=== PATIENT | female | born 1950 | race Caucasian/White ===

== ENCOUNTER 2020-05-17 07:53 | Outpatient (REF) | payer MEDICARE, SELFPAY | END 2020-05-17 07:54 | disposition home or self-care (01) | LOC: HO.LAB 07:53 | PROVIDERS: Visit Provider Internal Medicine | DX: Z20.822 Contact with and (suspected) exposure to COVID-19 (principal) | CPT/HCPCS: 36415; C9803; U0003; U0005 ==

== ENCOUNTER 2020-07-05 12:08 | Emergency (ER) | payer MEDICARE, SELFPAY ==
[2020-07-05] VITALS (7 sets, daily range): BP systolic 122–179; BP diastolic 68–87; PULSE 59–91; RESP 20; TEMP 36.6–36.9; O2SAT 97–99; BMI 23.1
--- NOTE | 2020-07-05 12:09 | ED.SYNCOPE ---
HPI - Syncope General Chief Complaint: Syncope Stated Complaint: SYNCOPAL EPISODE Time Seen by Provider: 07/05/20 12:09 Source: patient and EMS Mode of arrival: EMS Limitations: no limitations History of Present Illness HPI narrative: 70 yo female with anxiety did not eat dinner or breakfast this AM, was walking a long route this morning then felt the urge to have a bowel movement, felt lightheaded and dizzy hit her nose on the railing was able to lower herself and then had brief syncopal event, currently feels lightheaded has not had CP/SOB, feels she still has to have BM while here complaint: loss of consciousness, felt faint and collapsed Onset (ago): minute(s) -: second(s) Prodromal symptoms: vision changes and lightheaded Witnessed: Yes - by Bystander Context: during exertion (walking and felt she was going to have a BM) Injuries sustained associated with event: face (bruising and abrasion on nose) Current symptoms: lightheaded Treatments prior to arrival: none Related Data Allergies Allergy/AdvReac Type Severity Reaction Status Date / Time morphine [MORPHINE] Allergy Intermediate VOMITING, Verified 07/05/20 12:23 stomach upset sertraline Allergy Unknown Unknown Verified 07/05/20 12:23 Review of Systems Review of Systems: Constitutional : No Weight loss, No Fever, No Chills, No Fatigue, No Malaise ENT/Mouth : No sore throat, No Rhinorrhea Eyes: No Eye Pain, No Swelling, No Redness Cardiovascular : No Chest Pain, No SOB, No Dyspnea on Exertion, No Orthopnea, No Edema, No Palpitations Respiratory : No Cough, No Sputum, No Wheezing Gastrointestinal : No Nausea, No Vomiting, No Diarrhea, No Constipation, No abdominal Pain, No Hematochezia, No Melena Genitourinary : No Dysuria, No Urinary Frequency, No Hematuria, Musculoskeletal : No joint pain, No Myalgias, No Joint Swelling Skin : No Skin Lesions, No rash Neuro : pos Weakness, No Numbness, No Dizziness, No Headache, pos syncope Psych : No Anxiety/Panic, No Depression Heme/Lymph: No Bruising, No Bleeding,No Lymphadenopathy Endocrine : No Polyuria, No Polydipsia All other systems reviewed and are negative [facility] Past Medical History Attestation statement: The following information was validated with the patient. Medical History Anxiety Social History Social History (Updated 07/05/20 @ 12:25 by Montserrat Fu DO) Alcohol intake: never Smoking Status: Never smoker Use of substances other than those prescribed or required for medical reasons: Yes Substance Use Type: Marijuana Advance Directives: No Advance Directives Information Provided: Yes Physical Exam Vital Signs: Vital Signs: Last Vital Signs Temp 97.8 F 07/05/20 14:44 Pulse 66 07/05/20 14:44 Resp 20 07/05/20 14:44 BP 122/75 07/05/20 14:44 Pulse Ox 98 07/05/20 14:44 Body Mass Index 23.1 Appearance: Alert. Oriented X3. No acute distress. Eyes: Pupils equal, round and reactive to light. ENT: Pharynx normal. bruising and very superficial abrasion to bridge of nose, no deformity Neck: Normal inspection. Neck supple. CVS: Normal heart rate and rhythm. Pulses normal. Respiratory: No respiratory distress. Breath sounds normal. Abdomen: Soft and non-tender. Skin: Skin warm and dry. Normal skin color. Normal skin turgor. Extremities: No lower extremity edema. No calf ttp Neuro: Oriented X 3. No motor deficit. No sensory deficit. Course Course Course Narrative: CARE team setting patient up with [facility] feels better after 2L of IVF, no CP/SOB stable for DC at this time, ate lunch steady gait, VS stable, feels much better, stable for DC MDM - Syncope MDM Narrative Medical decision making narrative: 70 yo female with anxiety who did not eat dinner last night or breakfast today comes in with syncopal event while walking as she felt the urge to have a bowel movement, had a prodrome, no CP/SOB doubt ACS or PE, has superficial injury to nose, no headache no AC therapy, declines xrays of nose does not need head CT at this time GCS 15 no risk factors, midline of neck no ttp and no pain with ROM, will hydrate, obtain basic labs and EKG, dispo per results and findings. Lab Data Result diagrams: 07/05/20 12:28 07/05/20 12:28 Labs: Lab Results 07/05/20 07/05/20 07/05/20 Range/Units 12:28 12:28 12:28 WBC 5.3 (4.8-10.8) X10*3/uL RBC 4.32 (4.20-5.50) X10*6/uL Hgb 13.2 (12.0-16.0) g/dl Hct 37.6 (37-47) % MCV 87.0 (80-98) fL MCH 30.6 (27.0-33.0) pg MCHC 35.1 H (31.0-35.0) g/dl RDW 11.9 (11.0-16.0) % Plt Count 242 (160-400) X10*3/uL MPV 10.6 (9.4-12.3) fL Immature Gran % (Auto) 0.4 (0.0-0.4) % Neut % (Auto) 53.5 (45-73) % Lymph % (Auto) 35.3 (20-40) % [place] % (Auto) 8.1 (2-11) % Eos % (Auto) 1.9 (0-4) % Baso % (Auto) 0.8 (0-2) % Lymph # (Auto) 1.9 (1.2-4.9) X10*3/uL [place] # (Auto) 0.4 (0.1-1.2) X10*3/uL Eos # (Auto) 0.1 (0.0-0.4) X10*3/uL Baso # (Auto) 0.0 (0.0-0.2) X10*3/uL Abs Immat Gran (auto) 0.02 (0.00-0.03) X10*3/uL Absolute Neuts (auto) 2.9 (2.0-8.3) X10*3/uL Absolute Nucleated RBC 0.000 (0.0-0.012) X10*3/uL Nucleated RBC % (auto) 0.0 (0.0-0.2) /100WBC Sodium 136 (135-145) mmol/L Potassium 3.7 (3.3-5.1) mmol/L Chloride 101 (96-108) mmol/L Carbon Dioxide 22 (22-29) mmol/L Anion Gap 17 (12-20) BUN 15 (9-16) mg/dL Creatinine 0.77 (0.5-1.4) mg/dL Estim Creat Clear Calc 59.5 Estimated GFR > 60 Random Glucose 98 (60-115) mg/dL Calcium 9.1 (8.4-10.2) mg/dL Magnesium 1.8 (1.6-2.6) mg/dL Total Bilirubin 1.1 H (0.0-1.0) mg/dL Direct Bilirubin 0.4 (0.0-0.5) mg/dL AST 22 (5-31) U/L ALT 21 (0-31) U/L Alkaline Phosphatase 92 (39-117) U/L Troponin I High Sens < 3.5 (<3.5-17.0) ng/L Total Protein 6.7 (6.5-8.0) g/dL Albumin 4.4 (3.5-5.0) g/dL Lipase 13 (8-78) U/L ECG Data Attestation: I personally reviewed and interpreted this ECG as follows: ECG interpretation date: 07/05/20 ECG interpretation time: 12:52 Interpretation: Rate: 57 Rhythm: sinus bradycardia [place]: normal Normal P waves. Normal TORSTEN. Normal QRS complex. ST T wave : normal no [place] qTC: normal prior studies: no acute ischemia The study has been interpreted contemporaneously by me. . Discharge Plan Discharge Clinical Impression: Vasovagal syncope Patient Disposition: Home, Self-Care Instructions: Syncope (ED) Additional Instructions: return to ED for any worsening symptoms or concerns Referrals: [facility] [Primary Care Provider] - 2 days (if not better) Stand Alone Forms: Work/School Release
--- NOTE | 2020-07-05 12:16 | ECG_ITS ---
Test Reason : FALL Blood Pressure : / mmHG Vent. Rate : 057 BPM Atrial Rate : 057 BPM P-R Int : 178 ms QRS Dur : 084 ms QT Int : 462 ms P-R-T Axes : 074 004 055 degrees QTc Int : 449 ms Sinus bradycardia Otherwise normal ECG When compared with ECG of 20-FEB-2017 12:01, No significant change was found Referred By: Montserrat Fu Electronically Signed By:Lenin Ernst
[2020-07-05] MEDS: 0.9 % Sodium Chloride 1,000 ML 999 ML IVCONT ×2 (12:32→13:48)
--- NOTE | 2020-07-05 12:35 | PC.NURSE ---
Kitchen called for lunch tray of pasta. Pt reports increased anxiety, CARE team consult placed. Pt denies SI/ HI. Pt reports having food to eat at home but just didnt eat dinner or breakfast, only liquids. Pt offered and accepted juice, water.
[2020-07-05 12:39] LABS: MANUAL DIFF FLAG NO
[2020-07-05 12:43] LABS: Basophils Percent Auto 0.8 % (0-2); Eosinophils Absolute Auto 0.1 X10*3/uL (0.0-0.4); Eosinophils Percent Auto 1.9 % (0-4); Hematocrit 37.6 % (37-47); Hemoglobin 13.2 g/dl (12.0-16.0); Imm Gran Abs Auto 0.02 X10*3/uL (0.00-0.03); Imm Gran Pct Auto 0.4 % (0.0-0.4); Lymphocytes Absolute Auto 1.9 X10*3/uL (1.2-4.9); Lymphocytes Percent Auto 35.3 % (20-40); Mean Corpuscular HGB Conc 35.1 g/dl (31.0-35.0); Mean Corpuscular Hemoglobin 30.6 pg (27.0-33.0); Mean Platelet Volume 10.6 fL (9.4-12.3); Monocytes Absolute Auto 0.4 X10*3/uL (0.1-1.2); Monocytes Percent Auto 8.1 % (2-11); Neutrophils Absolute Auto 2.9 X10*3/uL (2.0-8.3); Neutrophils Percent Auto 53.5 % (45-73); Platelet Count 242 X10*3/uL (160-400); Red Blood Count 4.32 X10*6/uL (4.20-5.50); Red Cell Distribution Width 11.9 % (11.0-16.0); White Blood Count 5.3 X10*3/uL (4.8-10.8)
[2020-07-05 13:15] LABS: Alanine Aminotransferase 21 U/L (0-31); Albumin Level 4.4 g/dL (3.5-5.0); Alkaline Phosphatase 92 U/L (39-117); Anion Gap 17 (12-20); Aspartate Amino Transferase 22 U/L (5-31); Bilirubin Direct 0.4 mg/dL (0.0-0.5); Bilirubin Total 1.1 mg/dL (0.0-1.0); Blood Urea Nitrogen 15 mg/dL (9-16); Calcium 9.1 mg/dL (8.4-10.2); Carbon Dioxide 22 mmol/L (22-29); Chloride 101 mmol/L (96-108); Creatinine Clr Calc Pharmacy 59.5; Estimated Glomerular Filt Rate > 60; Glucose Random 98 mg/dL (60-115); Lipase 13 U/L (8-78); Magnesium 1.8 mg/dL (1.6-2.6); Potassium 3.7 mmol/L (3.3-5.1); Sodium 136 mmol/L (135-145); Total Protein 6.7 g/dL (6.5-8.0)
[2020-07-05 13:18] LABS: Troponin-I High Sensitivity < 3.5 ng/L (<3.5-17.0)
--- NOTE | 2020-07-05 13:48 | PC.NURSE ---
LUNCH WAS ORDERED AND IS AT BEDSIDE, PT REFUSED LUNCH AT THIS TIME.
--- NOTE | 2020-07-05 14:03 | MHC.CARE ---
1300: Met with patient at the request of ED Dr. Fu. Pt referred for consult due to increasing anxiety. Pt describes having a great deal of stress induced anxiety which she has been experiencing for the past several months which has grown more severe approximately 2 months ago after the passing of her sister. Pt reports growing anxiety resulting from recent news of her brother being diagnosed with cancer and another sister coming out of remission. Pt's has an alcohol addiction and is suspected of Using pills as well. Pt was unable to state what kind of pills they are/were but is assuming he is using pills based on his behavior. Pt did not go into detail on what that behavior is. 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 This reliance has been causing anxiety as well. Pt has taken 6 weeks off from work to Sort things out which she states has helped in some way. Pt stated she has been looking for a counselor but has not had much luck in securing one. Pt will be referred to [facility], pt is in agreement.
--- NOTE | 2020-07-05 14:41 | PC.NURSE ---
pt ate 100% of lunch.
--- NOTE | 2020-07-05 14:49 | PC.NURSE ---
pt denies any sensation of pins/needles, no excessive swelling noted, +cms to l leg.
--- NOTE | 2020-07-05 14:51 | PC.NURSE ---
pt amb (i) gait steady approx 50ft, aware.
== END 2020-07-05 15:24 | disposition home or self-care (01) ==
PROVIDERS: Emergency Provider Emergency Medicine
DX: R55 Syncope and collapse (principal); S00.31XA Abrasion of nose, initial encounter; W22.02XA Walked into lamppost, initial encounter; Y93.01 Activity, walking, marching and hiking; Y92.414 Local residential or business street as the place of occurrence of the external cause; Y99.9 Unspecified external cause status; F41.9 Anxiety disorder, unspecified; Z72.89 Other problems related to lifestyle; Z63.72 Alcoholism and drug addiction in family; Z63.4 Disappearance and death of family member; Z56.6 Other physical and mental strain related to work
CPT/HCPCS: 36415; 80048; 80076; 83690; 83735; 84484; 85025; 93005; 96360; 99284; 99285

== ENCOUNTER 2020-09-10 23:23 | Emergency (ER) | payer MEDICARE, SELFPAY ==
[2020-09-10 23:52] VITALS: BP 135/76; PULSE 100; RESP 18; TEMP 36.7; O2SAT 98; BMI 48.0
--- NOTE | 2020-09-11 00:19 | ED.EAR ---
HPI - Ear Problem General Chief complaint: Ear Problems Stated complaint: foreign object in ear Time Seen by Provider: 09/11/20 00:19 Source: patient Mode of arrival: ambulatory History of Present Illness HPI Narrative: This is a 70-year-old female who comes in with complaints of a bug being in her left ear, she attempted to remove with a Q-tip as well as rinsing her ear but was unsuccessful and is describing significant pain every time the bug moves. Related Data Previous Rx's Medication Instructions Recorded ciprofloxacin HCl 0.25 ml OTIC (EARS) Q12H 7 Days #1 09/11/20 ea Allergies Allergy/AdvReac Type Severity Reaction Status Date / Time morphine [MORPHINE] Allergy Intermediate VOMITING, Verified 07/05/20 12:23 stomach upset sertraline Allergy Unknown Unknown Verified 07/05/20 12:23 Review of Systems Review of Systems: Pertinent positives and negatives as stated in HPI 10 point review of systems is otherwise negative. PMFSH Past Medical History Source: nursing notes reviewed Medical History Anxiety Social History Social History Alcohol intake: never Substance Use Type: Marijuana Advance Directives: No Advance Directives Information Provided: No Physical Exam Vital Signs: Vital Signs: Last Vital Signs Temp 98.0 F 09/10/20 23:52 Pulse 100 09/10/20 23:52 Resp 18 09/10/20 23:52 BP 135/76 09/10/20 23:52 Pulse Ox 98 09/10/20 23:52 Body Mass Index 48.0 VITAL SIGNS: Reviewed. GENERAL: Well developed, well nourished, in no acute distress. HEAD: Normocephalic/atraumatic EYES: PERRLA, EOMI EARS: Left ear with noted foreign object OROPHARYNX: no oral lesions noted, posterior pharynx clear LUNGS: Normal breath sounds. SpO2<98> CARDIOVASCULAR: Regular rate and rhythm without noted murmurs ABDOMEN: Soft, non-tender, non-distended with bowel sounds. SKIN: Inspection of the skin reveals no rashes NEUROLOGIC: Alert and oriented x 4. Course Course Course Narrative: 70-year-old female with history and clinical presentation consistent with foreign object in left ear which was successfully extracted with alligator forceps. Procedures Foreign Body Removal Time Out Performed: no Site: left and ear Description of foreign body: insect Sedation/Analgesia: none Technique: removal with forceps Confirmed by:: direct visualization Complications: none Post-procedure exam: awake, alert Discharge Plan Discharge Clinical Impression: Foreign body of ear, left Patient Disposition: Home, Self-Care Instructions: Ear Foreign Body (ED) Additional Instructions: Please follow-up with the primary care provider for re-evaluation on Sunday. Return to the ER for acute worsening of your symptoms. Prescriptions: New ciprofloxacin HCl 0.2 % dropperette 0.25 ml otic (ears) Q12H 7 Days Qty: 1 RF: 0 Referrals: Physician,Unknown [Primary Care Provider] - 2 days
== END 2020-09-11 00:44 | disposition home or self-care (01) ==
PROVIDERS: Emergency Provider Student in an Organized Health Care Education/Training Program
DX: T16.2XXA Foreign body in left ear, initial encounter (principal); X58.XXXA Exposure to other specified factors, initial encounter; Y93.9 Activity, unspecified; Y92.9 Unspecified place or not applicable; Y99.9 Unspecified external cause status
CPT/HCPCS: 69200; 99283; 99284

== ENCOUNTER 2021-05-05 09:24 | Outpatient (REF) | payer MEDICARE, SELFPAY ==
[2021-05-05 11:06] LABS: Hematocrit 40.7 % (37.0-47.0); Hemoglobin 13.4 g/dl (12.0-16.0); Mean Corpuscular HGB Conc 32.9 g/dl (31.0-35.0); Mean Corpuscular Hemoglobin 29.9 pg (27.0-33.0); Mean Corpuscular Volume 90.8 fL (80.0-98.0); Mean Platelet Volume 10.3 fL (9.4-12.3); Platelet Count 262 X10*3/uL (160-400); Red Blood Count 4.48 X10*6/uL (4.20-5.50); Red Cell Distribution Width 12.6 % (11.0-16.0); White Blood Count 7.1 X10*3/uL (4.8-10.8)
[2021-05-05 11:39] LABS: Alanine Aminotransferase 20 U/L (0-31); Albumin Level 4.8 g/dL (3.5-5.0); Alkaline Phosphatase 98 U/L (39-117); Anion Gap 12 (12-20); Aspartate Amino Transferase 21 U/L (5-31); Bilirubin Total 0.9 mg/dL (0.0-1.0); Blood Urea Nitrogen 11 mg/dL (9-16); Calcium 10.2 mg/dL (8.4-10.2); Carbon Dioxide 27 mmol/L (22-29); Chloride 105 mmol/L (96-108); Estimated Glomerular Filt Rate > 60; Glucose Random 101 mg/dL (60-115); Lipase 23 U/L (8-78); Potassium 5.2 mmol/L (3.3-5.1); Sodium 139 mmol/L (135-145); Total Protein 7.5 g/dL (6.5-8.0)
[2021-05-05 11:54] LABS: TSH reflex Free T4 2.01 uIU/mL (0.32-4.0)
[2021-05-10 13:30] LABS: Vitamin D 25-OH, D2 <4 ng/mL; Vitamin D 25-OH, D3 19 ng/mL; Vitamin D 25-OH, Total 19 ng/mL (30-100)
== END 2021-05-05 09:25 | disposition home or self-care (01) ==
LOC: HO.LAB 09:24
PROVIDERS: Visit Provider Nurse Practitioner Family
DX: R19.7 Diarrhea, unspecified (principal); R10.11 Right upper quadrant pain; E55.9 Vitamin D deficiency, unspecified; F41.9 Anxiety disorder, unspecified; Z12.11 Encounter for screening for malignant neoplasm of colon; Z88.6 Allergy status to analgesic agent; Z88.8 Allergy status to other drugs, medicaments and biological substances
CPT/HCPCS: 36415; 80053; 82306; 83690; 84443; 85027; 99212

== ENCOUNTER 2021-05-12 08:25 | Outpatient (REF) | payer MEDICARE, SELFPAY ==
--- NOTE | ~2021-05-12 | CT_ITS ---
EXAMINATION: CT ABDOMEN AND PELVIS WITH CONTRAST CLINICAL INFORMATION: Abdominal pain COMPARISON: Abdominal ultrasound 06/13/2017 TECHNIQUE: Multidetector volumetric images were obtained from the superior aspect of the liver through the pubic symphysis following administration 85 mL of Omnipaque 350 intravenous contrast. Sagittal and coronal reformatted images were obtained on the technologist's workstation. Oral contrast: No This CT examination was performed using dose optimization techniques as appropriate, variously including the following: *Automated exposure control *Adjustment of mA and/or kV according to patient size (this includes techniques or standardized protocols for targeted exams where dose is matched to indication/reason for exam; i.e. extremities or head) *Use of iterative reconstruction technique DLP: 257 mGy-cm FINDINGS: LUNG BASES: Unremarkable. ABDOMINAL AND PELVIC WALL: Small fat-containing umbilical hernia. LIVER AND BILIARY TREE: Unremarkable. GALLBLADDER: Status post cholecystectomy. PANCREAS: Unremarkable. SPLEEN: Unremarkable. ADRENAL GLANDS: Unremarkable. KIDNEYS AND URETERS: Left renal hypodensity too small to characterize. GASTROINTESTINAL TRACT: Large and small bowel are unremarkable. Normal appendix. VASCULAR: Unremarkable. LYMPH NODES/PERITONEUM: No lymphadenopathy. FREE FLUID: None. BLADDER: Unremarkable. PELVIC VISCERA: Status post hysterectomy. OSSEOUS STRUCTURES: Degenerative disc disease at L3-L4. CT/CT abdomen pelvis w con IMPRESSION: No acute findings to explain symptoms of abdominal pain.
[2021-05-12] MEDS: iohexoL 350 MG/ML 100 ML INFUS..BTL 85 ML IV (10:51)
[2021-05-12] MEDS: Barium Sulfate Oral (Vanilla) 450 ML ORAL.SUSP 900 ML PO (10:52)
== END 2021-05-12 08:26 | disposition home or self-care (01) ==
LOC: HO.CT 08:25
PROVIDERS: PCP Nurse Practitioner Family; Visit Provider Nurse Practitioner Family
DX: R10.9 Unspecified abdominal pain (principal)
CPT/HCPCS: 74177; Q9967

== ENCOUNTER → 2022-08-18 08:46 | Outpatient (REF) | payer MEDICARE, SELFPAY ==
--- NOTE | 2022-08-18 08:48 | HM_ITS ---
* Total monitoring time 3 days. * Underlying rhythm is sinus with first-degree block. Average ventricular rate 73/Min. Range 43 to 132/Min. * Episode of narrow complex tachycardia; regular; maximum rate 184/Min. Appears to be SVT. Could also be atrial tachycardia. Duration over 2 hours. * Rare PACs and PVCs with low burden. * Nighttime pause up to 2.9 seconds, 1 episode. Otherwise, no significant blocks. * Palpitations in diary correlates with SVT. MTDD
== END ==
LOC: HO.CARD 08:46
PROVIDERS: PCP Internal Medicine; Visit Provider Internal Medicine
DX: R00.2 Palpitations (principal)
CPT/HCPCS: 93242

== ENCOUNTER 2022-09-15 09:36 | Outpatient (REF) | payer MEDICARE, SELFPAY ==
--- NOTE | ~2022-09-15 | MM_ITS ---
EXAMINATION: BONE DENSITOMETRY CLINICAL INDICATION: Age-related osteoporosis without current pathological fracture. COMPARISON: Baseline BD dated 04/27/2016. TECHNIQUE: Using a [employer] DXA System (software version: 13.1) manufactured by [employer], dual-energy x-ray absorptiometry was performed of the lumbar spine and left hip. The images are of good technical quality. Summary results are attached. FINDINGS: LEFT FEMUR, NECK: Current: BMD 0.717 g/cm2, Z-score -0.3, T-score -2.3, osteopenia. Baseline: BMD 0.758 g/cm2. LEFT FEMUR, TOTAL: Current: BMD 0.779 g/cm2, Z-score 0.0, T-score -1.8, osteopenia, 8.9% decrease from baseline (<5% change is not significant). Baseline: BMD 0.855 g/cm2. AP SPINE L1-L4: Current: BMD 0.886 g/cm2, Z-score -0.4, T-score -2.4, osteopenia, 15.5% decrease from baseline (<5% change is not significant). Baseline: BMD 1.049 g/cm2. IDENTIFIED RISK FACTORS: Menopause, hysterectomy. HISTORY OF FRACTURE: None listed. MEDICATIONS: None listed. MM/XR DEXA axial skeleton IMPRESSION: 1. DIAGNOSIS: Osteopenia based on the lowest T-score value of -2.4 in the lumbar spine applying World Health Organization criteria. 2. 10-YEAR FRACTURE RISK PREDICTION, FRAX: Major osteoporotic fracture (clinical spine, forearm, hip or shoulder) 12.6%. Hip fracture 3.3%. 3. Treatment Recommendations: NOF guidelines recommend consideration for treatment in postmenopausal women and men age 50 and older presenting with the following: -A hip or vertebral (clinical or morphometric) fracture. -T-score less than or equal to -2.5 at the femoral neck or spine after appropriate evaluation to exclude secondary causes. -Low bone mass at the hip or spine and a 10-year fracture probability by FRAX of greater than or equal to 3% for hip fracture or greater than or equal to 20% for major osteoporotic fracture based on the [place] adapted WHO algorithm. 4. Other Recommendations: All treatment decisions require clinical judgment and consideration of individual patient factors, including patient preferences, comorbidities, previous drug use, risk factors not captured in the FRAX model (e.g. frailty, falls, vitamin D deficiency, increased bone turnover, interval significant decline in bone density) and possible under or overestimation of fracture risk by FRAX. Additional medical evaluation for secondary cause of low bone mineral density may be appropriate. FUTURE SCAN RECOMMENDATION: People with diagnosed cases of osteoporosis or at high risk for fracture should have regular bone mineral density tests. For patients eligible for Medicare, routine testing is allowed once every 2 years. The testing frequency can be increased to one year for patients who have rapidly progressing disease, those who are receiving or discontinuing medical therapy to restore bone mass, or have additional risk factors.
--- NOTE | ~2022-09-15 | MM_ITS ---
EXAMINATION: MM SCREENING DIGITAL BREAST TOMOSYNTHESIS, BILATERAL CLINICAL INFORMATION: Screening. Asymptomatic. The lifetime risk of breast cancer based on the Tyrer-Cuzick Model is 6.3%. COMPARISON: Mammography: This study is compared with prior exams dating back to 2018. TECHNIQUE: Digital breast tomosynthesis is performed in both the craniocaudal and mediolateral oblique views along with computer-aided detection (CAD). Synthesized 2D images are generated from the tomosynthesis. FINDINGS: The breasts are heterogeneously dense, which may obscure small masses (ACR BI-RADS breast composition Category c). There are no significant masses, abnormal calcifications, or other abnormalities. MM/MM tomosynthesis screening BI IMPRESSION: No mammographic evidence of malignancy. ASSESSMENT: BI-RADS BI-RADS 1 - Negative RECOMMENDATION: Routine annual mammography screening. 1 year F/U This examination should not preclude the clinical evaluation of a suspicious palpable abnormality. This patient's information was entered into a reminder system with a target due date for their next mammogram.
== END 2022-09-15 09:37 | disposition home or self-care (01) ==
LOC: HO.MAMMO 09:36
PROVIDERS: PCP Internal Medicine; Visit Provider Internal Medicine
DX: Z12.31 Encounter for screening mammogram for malignant neoplasm of breast (principal); Z13.820 Encounter for screening for osteoporosis; Z78.0 Asymptomatic menopausal state; M81.0 Age-related osteoporosis without current pathological fracture
CPT/HCPCS: 77063; 77067; 77080

== ENCOUNTER → 2022-09-15 10:15 | Outpatient (BNV) | payer MEDICARE, SELFPAY | PROVIDERS: PCP Internal Medicine; Visit Provider Radiology Diagnostic Radiology | DX: Z12.31 Encounter for screening mammogram for malignant neoplasm of breast (principal) | CPT/HCPCS: 77063; 77067 ==

== ENCOUNTER 2023-05-23 03:00 | Observation (INO) | payer MEDICARE, OTHER, SELFPAY ==
[2023-05-23] VITALS (9 sets, daily range): BP systolic 130–170; BP diastolic 55–100; PULSE 41–63; RESP 13–20; TEMP 36.1–37; O2SAT 93–99; BMI 21.5; BMI 21.4
--- NOTE | ~2023-05-23 | CT_ITS ---
EXAMINATION: CT ABDOMEN AND PELVIS WITHOUT AND WITH CONTRAST CLINICAL INFORMATION: Right lower quadrant abdominal pain COMPARISON: CT abdomen and pelvis of 05/23/2023 obtained at 3:39 AM, CT abdomen and pelvis of 05/12/2021 TECHNIQUE: Multidetector volumetric imaging was performed of the abdomen and pelvis before and after the IV administration of 85 mL of Omnipaque 300 intravenous contrast. Sagittal and coronal reformatted images were obtained on the technologist's workstation. This CT examination was performed using dose optimization techniques as appropriate, variously including the following: *Automated exposure control *Adjustment of mA and/or kV according to patient size (this includes techniques or standardized protocols for targeted exams where dose is matched to indication/reason for exam; i.e. extremities or head) *Use of iterative reconstruction technique DLP: 609 mGy-cm FINDINGS: LUNG BASES: The visualized lung bases are unremarkable. LIVER, GALLBLADDER, AND BILIARY TREE: Portion of the liver is not completely imaged on postcontrast images. The liver is normal in size, contour and attenuation. Note is again made of left hepatic lobe crossing the midline reaching up to the lateral left abdomen. No intrahepatic biliary ductal dilatation. The gallbladder is surgically absent. No unexpected common bile ductal dilatation. No radiopaque filling defect is noted in the common bile duct. Findings suggestive of mild periportal edema which could be related to overhydration recommend clinical correlation. PANCREAS: Unremarkable SPLEEN: Unremarkable. Trace perisplenic free fluid is noted. ADRENAL GLANDS: Unremarkable KIDNEYS AND URETERS: The kidneys are normal in size, shape and attenuation. There is symmetrical enhancement and excretion from the kidneys. Excreted contrast is noted in the bilateral intrarenal collecting systems and proximal to mid ureter on the right and proximal ureter on the left. Please note that the ureters are not completely opacified with contrast which somewhat limits evaluation. No evidence of radiopaque renal calculi. No hydroureteronephrosis or perinephric stranding. A few calcifications along the course of the right mid to distal ureter for example series 5 image 377 and image 393) are noted. The calcification noted on image 377 represents an arterial calcification. The calcification noted on the image 393 measures 0.3 cm, previously 0.2 cm (05/12/2021). Since this calcification was noted on the previous CT scan of 05/12/2021 and there is no evidence of right hydroureteronephrosis the calcification is felt to represent a vascular calcification rather than ureteric calculus. It is difficult to trace the bilateral ureters in mid to distal pelvis. BLADDER: Distended and opacified with excreted contrast. No radiopaque calculi are seen. No evidence of bladder wall thickening or obvious soft tissue mass. GASTROINTESTINAL TRACT: The stomach is largely decompressed. No abnormal small bowel dilatation. Colon is normal in caliber. No evidence of colonic wall thickening or pericolonic fat stranding. Lump appearance of the appendix measuring 0.9 cm in diameter containing multiple air foci is stable compared to previous CT scan of 05/12/2021. No evidence of appendiceal wall thickening, enhancement enhancement or periappendiceal fat stranding. Mild scattered colonic diverticulosis without acute diverticulitis. Fecalization is noted in the distal ileal loops which may suggest slow transit. ABDOMINAL WALL: Fat-containing umbilical hernia is noted measuring 1.4 x 2.4 x 1 cm. The hernial neck measures 0.5 x 0.5 cm in length and transverse dimensions. LYMPH NODES: No evidence of pathologically enlarged lymph nodes. VASCULAR: The aortoiliac vessels are normal in caliber and well opacified. PELVIC VISCERA: The uterus is not seen, likely surgically absent. Multiple phleboliths are noted in the pelvis bilaterally. No adnexal mass. OSSEOUS STRUCTURES: No acute or suspicious osseous abnormality. Moderate to severe narrowing of the L3-L4 disc space with sclerotic endplate marrow changes and small endplate osteophytes. Facet arthropathy in the lower lumbar spine. CT/CT abdomen pelvis wo/w IV con IMPRESSION: 1. No evidence of acute abnormality in the right lower quadrant to explain patient's symptoms. 2. No evidence of radiopaque urinary tract calculi, hydroureteronephrosis or perinephric stranding. A few calcifications along the course of the right mid to distal ureter are felt to represent vascular calcifications rather than ureteric calculi as detailed above. No evidence of hydroureteronephrosis or perinephric stranding. 3. Trace perisplenic free fluid and findings suggestive of mild periportal edema. Findings are nonspecific and probably related to overhydration. Recommend clinical correlation. 4. Stable appearance of the appendix without evidence of acute appendicitis. Fecalization in the distal ileal loops may suggest slow transit. 5. Fat-containing umbilical hernia. Fleischner guidelines were followed.
--- NOTE | ~2023-05-23 | CT_ITS ---
EXAMINATION: CT ABDOMEN AND PELVIS WITHOUT CONTRAST CLINICAL INFORMATION: Right flank pain COMPARISON: 05/12/2021 TECHNIQUE: Multidetector volumetric imaging was performed from the superior aspect of the liver through the pubic symphysis. Sagittal and coronal reformatted images were obtained on the technologist's workstation. This CT examination was performed using dose optimization techniques as appropriate, variously including the following: *Automated exposure control *Adjustment of mA and/or kV according to patient size (this includes techniques or standardized protocols for targeted exams where dose is matched to indication/reason for exam; i.e. extremities or head) *Use of iterative reconstruction technique DLP: 363 mGy-cm FINDINGS: LUNG BASES: The visualized lung bases are unremarkable. LIVER, GALLBLADDER, AND BILIARY TREE: The liver is normal in size, shape, and attenuation. No focal hepatic lesion or biliary ductal dilatation is identified on this noncontrast exam. Patient is status post cholecystectomy. PANCREAS: Unremarkable. SPLEEN: Unremarkable. ADRENAL GLANDS: Unremarkable. KIDNEYS AND URETERS: No hydronephrosis or obstructing calculus bilaterally. BLADDER: Mildly distended and grossly unremarkable. GASTROINTESTINAL TRACT: No evidence of bowel obstruction. Limited assessment for wall thickening in some segments of the colon due to luminal collapse. Appendix contains gas, similar to prior. No free fluid or free air is seen. ABDOMINAL WALL: No significant hernia is appreciated. LYMPH NODES: No significant lymphadenopathy is seen, though assessment is limited in the absence of intravenous contrast. VASCULAR: Scattered atherosclerotic calcifications. PELVIC VISCERA: Patient is status post hysterectomy. OSSEOUS STRUCTURES: Disc space narrowing and endplate osteophytes at L3-L4. Lumbar facet arthropathy is also noted. CT/CT abdomen pelvis wo IV con IMPRESSION: No acute findings identified in the abdomen/pelvis.
[2023-05-23] MEDS: Ketorolac Tromethamine 30 MG/ML VIAL 15 MG IVPUSH ×2 (03:26→04:12)
[2023-05-23] MEDS: ondansetron HCL 4 MG/2 ML VIAL IVPUSH ×3 (03:26→21:42)
[2023-05-23] MEDS: 0.9 % Sodium Chloride 1,000 ML 999 ML IV (03:33)
--- NOTE | 2023-05-23 03:51 | ECG_ITS ---
Test Reason : ABD PAIN Blood Pressure : / mmHG Vent. Rate : 048 BPM Atrial Rate : 048 BPM P-R Int : 202 ms QRS Dur : 082 ms QT Int : 478 ms P-R-T Axes : 074 -31 056 degrees QTc Int : 427 ms Sinus bradycardia Left axis deviation Abnormal ECG When compared with ECG of 05-JUL-2020 12:50, No significant change was found Referred By: Laura Winter Electronically Signed By:Lenin Ernst
[2023-05-23 03:56] LABS: MANUAL DIFF FLAG NO
[2023-05-23 03:57] LABS: Basophils Percent Auto 0.7 % (0-2); Eosinophils Absolute Auto 0.1 X10*3/uL (0.0-0.4); Eosinophils Percent Auto 1.1 % (0-4); Hematocrit 35.4 % (37.0-47.0); Hemoglobin 12.2 g/dl (12.0-16.0); Imm Gran Abs Auto 0.01 X10*3/uL (0.00-0.03); Imm Gran Pct Auto 0.2 % (0.0-0.4); Lymphocytes Absolute Auto 0.9 X10*3/uL (1.2-4.9); Lymphocytes Percent Auto 20.3 % (20-40); Mean Corpuscular HGB Conc 34.5 g/dl (31.0-35.0); Mean Corpuscular Hemoglobin 29.5 pg (27.0-33.0); Mean Corpuscular Volume 85.7 fL (80.0-98.0); Mean Platelet Volume 9.1 fL (9.4-12.3); Monocytes Absolute Auto 0.3 X10*3/uL (0.1-1.2); Monocytes Percent Auto 5.5 % (2-11); Neutrophils Absolute Auto 3.3 x10*3/uL (2.0-8.3); Neutrophils Percent Auto 72.2 % (45-73); Platelet Count 207 X10*3/uL (160-400); Red Blood Count 4.13 X10*6/uL (4.20-5.50); Red Cell Distribution Width 12.3 % (11.0-16.0); White Blood Count 4.6 X10*3/uL (4.8-10.8)
[2023-05-23] MEDS: Lidocaine 4 % Patch ADH..PATCH 1 PATCH TRANSDERMA (04:12)
--- NOTE | 2023-05-23 04:17 | PC.NURSE ---
Attempted to medicate per orders for ongoing pain, pt refused Tylenol concerned that she would not tolerate given active nausea and vomiting.
[2023-05-23 04:34] LABS: Alanine Aminotransferase 19 U/L (0-31); Albumin Level 3.9 g/dL (3.5-5.0); Alkaline Phosphatase 79 U/L (39-117); Anion Gap 12 (12-20); Aspartate Amino Transferase 19 U/L (5-31); Bilirubin Total 0.7 mg/dL (0.0-1.0); Blood Urea Nitrogen 9 mg/dL (9-16); Calcium 8.2 mg/dL (8.4-10.2); Carbon Dioxide 23 mmol/L (22-29); Chloride 106 mmol/L (96-108); Creatinine Clr Calc Pharmacy 60.9; Estimated Glomerular Filt Rate > 60; Glucose Random 139 mg/dL (60-115); Influenza A PCR NEGATIVE (Negative); Influenza B PCR NEGATIVE (Negative); Potassium 4.9 mmol/L (3.3-5.1); Resp Syncy Virus RNA Qual PCR NEGATIVE (Negative); SARS COV2 PCR INHOUSE NEGATIVE (Negative); Sodium 136 mmol/L (135-145); Total Protein 6.1 g/dL (6.5-8.0)
--- NOTE | 2023-05-23 04:48 | ED.BACK ---
HPI - Back Pain/Injury General Chief Complaint: Back Pain/Injury Stated Complaint: back pain and nausea Time Seen by Provider: 05/23/23 03:58 Source: patient Mode of arrival: ambulatory History of Present Illness HPI Narrative: 73-year-old female who reports raking in the yd earlier today and then began developing right lower quadrant/inguinal discomfort with associated nausea and vomiting and then became worse, awakening her in the middle the night. She denies any use of medications. Related Data Previous Rx's Medication Instructions Recorded metoprolol succinate 25 mg 25 mg PO DAILY #30 tabs 09/20/22 tablet,extended release 24 hr Allergies Allergy/AdvReac Type Severity Reaction Status Date / Time morphine [MORPHINE] Allergy Intermediate VOMITING, Verified 05/23/23 03:19 stomach upset sertraline Allergy Unknown Unknown Verified 05/23/23 03:19 Review of Systems Review of Systems: Pertinent positives and negatives as stated in HPI [facility] Past Medical History Source: nursing notes reviewed Medical History Umbilical hernia Hepatitis C Lumbar degenerative disc disease Anxiety Surgical History History of cholecystectomy Status post hysterectomy Hx of colonoscopy Family History Family History Mother No problems noted. Father No problems noted. Brother No problems noted. Brother Substance abuse Brother No problems noted. Sister No problems noted. Sister No problems noted. Sister Breast cancer Sister Leukemia Sister No problems noted. Son No problems noted. Daughter No problems noted. Daughter No problems noted. Social History Social History Housing: House Alcohol intake: former Patient Tobacco Use Status: Former Tobacco user Tobacco use type: Cigarette Years Smoked: QUIT 2000 Smoked in Last 30 Days: No e-Cigarette/Vaping Use: Never Used Second Hand Smoke Exposure: No Use of substances other than those prescribed or required for medical reasons: Yes Substance Use Type: Marijuana Substance Use Frequency: Chronic Longstanding Advance Directives: No Advance Directives Information Provided: No Current occupational status: retired Current occupational exposures/hazards: No Cognitive needs: No Hearing needs: No Vision needs: Yes Physical Exam Vital Signs: Vital Signs: Last Vital Signs Temp 97 F 05/23/23 06:00 Pulse 41 L 05/23/23 06:00 Resp 13 05/23/23 06:00 BP 140/60 H 05/23/23 06:00 Pulse Ox 99 05/23/23 06:00 O2 Del Method Room Air 05/23/23 04:49 BMI result Body Mass Index 21.5 VITAL SIGNS: Reviewed. GENERAL: Well developed, well nourished, in severe distress. HEAD: Normocephalic/atraumatic EYES: PERRLA, EOMI EARS: Ext canals without abnormality NOSE: Nares patent bilateral OROPHARYNX: no oral lesions noted, posterior pharynx clear and non-erythematous without noted tonsillar enlargement/erythema/exudates NECK: Supple, no adenopathy LUNGS: Normal breath sounds. No adventitious sounds or accessory muscle use. SpO2<99> CARDIOVASCULAR: Regular rate and rhythm without noted murmurs ABDOMEN: Soft, non-tender, non-distended with bowel sounds, however palpation over right inguinal acutely tender to palpation, no CVA tenderness, no McBurney's MUSCULOSKELETAL: No tenderness, deformities, or effusions noted on gross inspection. EXTREMITIES: No cyanosis, clubbing or edema. SKIN: Inspection of the skin reveals no rashes NEUROLOGIC: Alert and oriented x 4. Strength and sensation to light touch were grossly intact x 4. Medications Administered Discontinued Medications Generic Name Dose Route Start Last Admin Trade Name Freq PRN Reason Stop Dose Admin Acetaminophen 975 mg 05/23/23 04:08 05/23/23 06:08 Acetaminophen 325 Mg Tablet PO 05/23/23 04:09 Not Given ONCE ONE Fentanyl 25 mcg 05/23/23 04:48 05/23/23 04:58 Fentanyl Citrate/Pf 100 Mcg/2 Ml Vial IVPUSH 05/23/23 04:49 25 mcg ONCE ONE Administration Protocol Sodium Chloride 1,000 mls @ 999 mls/hr 05/23/23 03:30 05/23/23 05:05 Ns IV 05/23/23 04:30 Infused .Q1H1M FRANCINE Infusion Iohexol 85 ml 05/23/23 06:31 05/23/23 06:32 Iohexol 350 Mg/Ml 100 Ml Infus..Btl IV 05/23/23 06:32 85 ml ONCE ONE Administration Ketorolac Tromethamine 15 mg 05/23/23 03:20 05/23/23 03:26 Ketorolac Tromethamine 30 Mg/Ml Vial IVPUSH 05/23/23 03:21 15 mg ONCE ONE Administration Ketorolac Tromethamine 15 mg 05/23/23 04:08 05/23/23 04:12 Ketorolac Tromethamine 30 Mg/Ml Vial IVPUSH 05/23/23 04:09 15 mg ONCE ONE Administration Lidocaine 1 patch 05/23/23 04:08 05/23/23 04:12 Lidocaine 4 % Patch Adh..Patch TRANSDERMA 05/23/23 04:09 1 patch ONCE ONE Administration Protocol Ondansetron HCl 4 mg 05/23/23 03:21 05/23/23 03:26 Ondansetron Hcl 4 Mg/2 Ml Vial IVPUSH 05/23/23 03:22 4 mg ONCE ONE Administration Medical Decision Making Medical Decision Making MDM Narrative: 73-year-old female with history and clinical presentation, DDX: Renal colic, musculoskeletal pain, compression fracture/muscle spasm, lower clinical suspicion for cholecystitis/appendicitis/UTI and no clinical suspicion for SBO. Patient received IV fluids, Zofran, analgesics. Patient continued to be in pain and received additional analgesics and finally had to provide her with fentanyl. I reviewed all investigations and hematologic indices are negative for leukocytosis/anemia/thrombocytopenia. Chemistry indices negative for KATT/electrolyte or liver enzyme derangements. Urinalysis negative for UTI or hematuria. Viral testing is negative for influenza/RSV/COVID-19. Initial CT scan did not demonstrate any intra-abdominal findings, I confirmed with further discussion with the radiologist but nothing identified, radiology recommended repeating CT scan with and without contrast for better identification possible ureterolithiasis. This repeat CT scan was conducted, patient began having pain once again and received another 25 mcg of fentanyl. I signed out to Dr Eddy - f/u CT scan w/wo contrast. Differential Diagnosis Differential Diagnoses: The differential diagnosis associated with the presentation includes Please see the discussion above Admission/Observation Consideration of admission/observation: Escalation of care including admission/observation considered Please see the discussion above Lab Data MDM Lab Attestation statement: I reviewed the patient's lab results. Please see the discussion above 05/23/23 03:50 05/23/23 03:50 Labs: Lab Results 05/23/23 05/23/23 Range/Units 03:50 06:47 WBC 4.6 L (4.8-10.8) X10*3/uL RBC 4.13 L (4.20-5.50) X10*6/uL Hgb 12.2 (12.0-16.0) g/dl Hct 35.4 L (37.0-47.0) % MCV 85.7 (80.0-98.0) fL MCH 29.5 (27.0-33.0) pg MCHC 34.5 (31.0-35.0) g/dl RDW 12.3 (11.0-16.0) % Plt Count 207 (160-400) X10*3/uL MPV 9.1 L (9.4-12.3) fL Immature Gran % (Auto) 0.2 (0.0-0.4) % Neut % (Auto) 72.2 (45-73) % Lymph % (Auto) 20.3 (20-40) % [place] % (Auto) 5.5 (2-11) % Eos % (Auto) 1.1 (0-4) % Baso % (Auto) 0.7 (0-2) % Lymph # (Auto) 0.9 L (1.2-4.9) X10*3/uL [place] # (Auto) 0.3 (0.1-1.2) X10*3/uL Eos # (Auto) 0.1 (0.0-0.4) X10*3/uL Baso # (Auto) 0.0 (0.0-0.2) X10*3/uL Abs Immat Gran (auto) 0.01 (0.00-0.03) X10*3/uL Absolute Neuts (auto) 3.3 (2.0-8.3) x10*3/uL Absolute Nucleated RBC 0.000 (0.0-0.012) X10*3/uL Nucleated RBC % (auto) 0.0 (0.0-0.2) /100WBC Sodium 136 (135-145) mmol/L Potassium 4.9 (3.3-5.1) mmol/L Chloride 106 (96-108) mmol/L Carbon Dioxide 23 (22-29) mmol/L Anion Gap 12 (12-20) BUN 9 (9-16) mg/dL Creatinine 0.72 (0.5-1.4) mg/dL Estim Creat Clear Calc 60.9 Estimated GFR > 60 Random Glucose 139 H (60-115) mg/dL Calcium 8.2 L D (8.4-10.2) mg/dL Total Bilirubin 0.7 (0.0-1.0) mg/dL AST 19 (5-31) U/L ALT 19 (0-31) U/L Alkaline Phosphatase 79 (39-117) U/L Total Protein 6.1 L (6.5-8.0) g/dL Albumin 3.9 (3.5-5.0) g/dL Urine Color Yellow Urine Appearance Clear Urine pH 7.0 (5.0-9.0) Ur Specific [place] 1.020 (1.005-1.025) Urine Protein Negative (Neg-Trace) mg/dL Urine Glucose (UA) Negative (Negative) mg/dL Urine Ketones 40 (Negative) mg/dL Urine Blood Negative (Negative) Urine Nitrite Negative (Negative) Ur Leukocyte Esterase Trace H (Negative) Influenza Type A (PCR) NEGATIVE (Negative) Influenza Type B (PCR) NEGATIVE (Negative) RSV RNA Qual (PCR) NEGATIVE (Negative) SARS-CoV-2 RNA (RT-PCR) NEGATIVE (Negative) Independent Interpretation I performed an independent interpretation of an: EKG Interpretation: Sinus bradycardia, HR -48, no STEMI, IL/QRS/QTC is within normal limits. Radiology Impression Discussion of test interpretation with radiology: I have reviewed the radiologist's reading. Radiologist Impression: Please see the discussion above External Record Review External record reviewed: Outpatient record and Prior outpatient labs Critical Care Time Critical Care Time Critical Care Time: Yes Total Critical Care Time: 60 Attestation: I personally attest to this time spent taking care of the patient. Discharge Plan Discharge Clinical Impression: Right lower quadrant pain Patient Disposition: Still a Patient Prescriptions: No Action metoprolol succinate 25 mg tablet extended release 24 hr 25 mg PO DAILY Qty: 30 3RF
[2023-05-23] MEDS: fentaNYL citrate/PF 100 MCG/2 ML VIAL 25 MCG IVPUSH ×2 (04:58→07:11)
[2023-05-23] MEDS: iohexoL 350 MG/ML 100 ML INFUS..BTL 85 ML IV (06:32)
[2023-05-23 07:01] LABS: Appearance Urine Clear; Color Urine Yellow; Glucose Urine UA Negative (Negative); Leukocyte Esterase Urine Trace (Negative); Nitrite Urine Negative (Negative); UMIC TRIGGER UACC YES; Urine Blood Negative (Negative); Urine Ketones 40 mg/dL (Negative); Urine Protein Negative (Neg-Trace)
[2023-05-23 07:19] LABS: Bacteria Urine None Seen (None Seen); Hyaline Casts Urine 0-2 /LPF (0-2); RBC Urine 0-2 /HPF (0-2); Squamous Epithelial Cell Urine 0-2 /HPF (0-2); WBC Urine 0-5 /HPF (0-5)
[2023-05-23 08:08] LABS: Troponin-I High Sensitivity < 2.7 ng/L (<3.5-17.0)
[2023-05-23] MEDS: HYDROmorphone HCl 0.5 MG/0.5 ML SYRINGE IVPUSH ×2 (08:08→11:43)
[2023-05-23] MEDS: diphenhydrAMINE HCL 50 MG/ML VIAL 25 MG IVPUSH (08:19)
[2023-05-23] MEDS: Metoclopramide HCl 10 MG/2 ML VIAL 5 MG IVPUSH (08:20)
--- NOTE | 2023-05-23 09:14 | PC.NURSE ---
assumed care of pt at 0700, pt a&ox4, reporting 10/10 R flank/inguinal pain, tearful, nausea, ~ 30min relief w 25mcg fentanyl, provider aware, medicated per APR. pt transitioned into ED1, clinical research monitor applied, vss - intermittently bradycardic. pt pending CT scan results. no new orders at this time.
--- NOTE | 2023-05-23 13:49 | PM.IMHP ---
History of Present Illness Date of Service: 05/23/23 Attending physician on admission: [facility] Chief Complaint: back pain 73 year old female with history of SVT, osteoporosis presented to the ED early this morning for evaluation of severe right sided low back pain radiation into the RLQ. She states pain started while raking on sunday causing her to stop activity. She then attempted raking again yesterday which worsened her pain. Last night into this morning the pain was so severe she was nauseas and vomiting. Pain is described as sharp and stabbing. No burning, pruritus, or rash. Denies midline tenderness. No radiation into the legs. No weakness, paresthesias, saddle anesthesia, or bowel/bladder dysfunction. Has never had similar pain. Denies falls or specific injury. Since arrival has been intermittently bradycardic while laying down/sleeping in the 40s, but HR 50s-60s while awake. No lightheadedness, sob, syncope. No abd pain, constipation, diarrhea, bloody stools, chest pain. Hematology studies unremarkable. Renal function and electrolytes normal. UA unremarkable. Negative for flu, rsv, covid. Ct abd/pelvis negative for any acute intraabdominal abnormality. There are a few calcifications along the course of the right mid to distal ureter felt to be vascular calcifications rather than ureteric calculi, no hydronephrosis or perinephric stranding. Could consider CT urogram. In the ED, has been given ketorolac, multiple doses IV dilaudid 0.5mg, 50mctg fentanyl, reglan, benadryl, and zofran without much relief. She will be observed for further management of intractable low back pain despite multiple IV narcotics. She is currently reporting pain 2/10 but with any movement, pain becomes severe. Review of Systems Review of Systems: General: No fevers, malaise, unintentional weight loss HEENT: No blurred vision, diplopia. No sore throat, nasal congestion, rhinorrhea, sinus pain, ear pain Cardiovascular: No chest pain, palpitations, or leg edema Respiratory: No shortness of breath, wheezing, cough GI: No abdominal pain, nausea, vomiting, diarrhea, constipation, melena, hematochezia : No dysuria, hematuria, increased urinary frequency, decreased urinary output MSK: No myalgia. +low back pain Neuro: No headaches, weakness, paresthesias Skin: No rashes or lesions PENDING SALE TO [facility] Medical History Umbilical hernia Hepatitis C Lumbar degenerative disc disease Anxiety Family History Mother No problems noted. Father No problems noted. Brother No problems noted. Brother Substance abuse Brother No problems noted. Sister No problems noted. Sister No problems noted. Sister Breast cancer Sister Leukemia Sister No problems noted. Son No problems noted. Daughter No problems noted. Daughter No problems noted. Surgical History History of cholecystectomy Status post hysterectomy Hx of colonoscopy Social History Housing: House Alcohol intake: former Patient Tobacco Use Status: Former Tobacco user Tobacco use type: Cigarette Years Smoked: QUIT 2000 Smoked in Last 30 Days: No e-Cigarette/Vaping Use: Never Used Second Hand Smoke Exposure: No Use of substances other than those prescribed or required for medical reasons: Yes Substance Use Type: Marijuana Substance Use Frequency: Chronic Longstanding Advance Directives: No Advance Directives Information Provided: No Nutrition Risks: No Nutritional Risk Current occupational status: retired Current occupational exposures/hazards: No Cognitive needs: No Hearing needs: No Vision needs: Yes Meds Allergies Allergy/AdvReac Type Severity Reaction Status Date / Time morphine [MORPHINE] Allergy Intermediate VOMITING, Verified 05/23/23 03:19 stomach upset sertraline Allergy Unknown Unknown Verified 05/23/23 03:19 Active Medications: Current Medications Acetaminophen (Acetaminophen 325 Mg Tablet) 650 mg PO Q6H PRN PRN Reason: Pain, Mild (Pain Scale 1-3) Enoxaparin Sodium (Enoxaparin Sodium 40 Mg/0.4 Ml Syringe) 40 mg SUBCUT Q24H FRANCINE Lidocaine (Lidocaine 4 % Patch Adh..Patch) 1 patch TRANSDERMA DAILY FRANCINE; Protocol Methylprednisolone Sodium Succinate (Methylprednisolone Sod Succ 125 Mg/2 Ml Vial) 60 mg IVPUSH Q12H FRANCINE Ondansetron HCl (Ondansetron Hcl 4 Mg/2 Ml Vial) 4 mg IVPUSH Q8H PRN PRN Reason: Nausea and Vomiting Senna (Sennosides 8.6 Mg Tablet) 17.2 mg PO BEDTIME PRN PRN Reason: Constipation Sodium Chloride (0.9 % Sodium Chloride Flush 3 Ml Syringe) 3 ml IVFLUSH QSHIFT [facility] Home Medications Medication Instructions Recorded Confirmed Last Taken Type calcium carbonate 500 mg calcium 500 mg PO BID 05/23/23 05/23/23 05/22/23 History (1,250 mg) tablet magnesium 250 mg tablet 250 mg PO BID 05/23/23 05/23/23 05/22/23 History Physical Exam Vital Signs and Narrative: Vital Signs: Last Vital Signs Temp 98.6 F 05/23/23 11:32 Pulse 52 05/23/23 11:32 Resp 14 05/23/23 11:43 BP 150/69 H 05/23/23 11:32 Pulse Ox 98 05/23/23 11:32 O2 Del Method Room Air 05/23/23 11:32 BMI result Body Mass Index 21.5 Constitutional - Awake and Alert, No apparent distress Eyes - PERRLA, EOMI Cardiovascular - S1S2, RRR, No edema Respiratory - Normal lung expansion, Normal respiratory effort, No respiratory distress, CTA bilaterally Gastrointestinal - NT / ND; +BS; No rebound or guarding - No CVA tenderness Extremities - no calf tenderness bilaterally, no swelling Musculoskeletal - Normal inspection, normal ROM. No midline or paraspinal ttp. No reproducible tenderness to palpation. negative straight leg raises Skin - Warm/Dry Neurological - Alert & oriented x3, 5/5 strength BLE, sensation in tact ble. 2+ patellar reflexes bilaterally, downgoing babinski Psychological - Appropriate affect Results Labs 05/23/23 03:50 05/23/23 03:50 Labs: Laboratory Results - last 24 hr 05/23/23 05/23/23 03:50 06:47 MCV 85.7 MCH 29.5 MCHC 34.5 RDW 12.3 Plt Count 207 MPV 9.1 L Immature Gran % (Auto) 0.2 Neut % (Auto) 72.2 Lymph % (Auto) 20.3 [place] % (Auto) 5.5 Eos % (Auto) 1.1 Baso % (Auto) 0.7 Lymph # (Auto) 0.9 L [place] # (Auto) 0.3 Eos # (Auto) 0.1 Baso # (Auto) 0.0 Abs Immat Gran (auto) 0.01 Absolute Neuts (auto) 3.3 Absolute Nucleated RBC 0.000 Nucleated RBC % (auto) 0.0 Anion Gap 12 Estim Creat Clear Calc 60.9 Estimated GFR > 60 Random Glucose 139 H Calcium 8.2 L D Total Bilirubin 0.7 AST 19 ALT 19 Alkaline Phosphatase 79 Troponin I High Sens < 2.7 Total Protein 6.1 L Albumin 3.9 Urine Color Yellow Urine Appearance Clear Urine pH 7.0 Ur Specific [place] 1.020 Urine Protein Negative Urine Glucose (UA) Negative Urine Ketones 40 Urine Blood Negative Urine Nitrite Negative Ur Leukocyte Esterase Trace H Urine RBC 0-2 Urine WBC 0-5 Ur Squamous Epith Cells 0-2 Urine Bacteria None Seen Hyaline Casts 0-2 Influenza Type A (PCR) NEGATIVE Influenza Type B (PCR) NEGATIVE RSV RNA Qual (PCR) NEGATIVE SARS-CoV-2 RNA (RT-PCR) NEGATIVE Imaging Radiologist's Impressions: Impressions Abdomen/Pelvis CT 05/23/23 03:49 IMPRESSION: No acute findings identified in the abdomen/pelvis. Abdomen/Pelvis CT 05/23/23 06:35 IMPRESSION: 1. No evidence of acute abnormality in the right lower quadrant to explain patient's symptoms. 2. No evidence of radiopaque urinary tract calculi, hydroureteronephrosis or perinephric stranding. A few calcifications along the course of the right mid to distal ureter are felt to represent vascular calcifications rather than ureteric calculi as detailed above. No evidence of hydroureteronephrosis or perinephric stranding. 3. Trace perisplenic free fluid and findings suggestive of mild periportal edema. Findings are nonspecific and probably related to overhydration. Recommend clinical correlation. 4. Stable appearance of the appendix without evidence of acute appendicitis. Fecalization in the distal ileal loops may suggest slow transit. 5. Fat-containing umbilical hernia. Fleischner guidelines were followed. Assessment and Plan (1) Intractable back pain: Status: Acute Plan 73 year old female with history of SVT, osteoporosis to be observed for intractable low back pain after raking #Intractable right sided low back pain -nonreproducible on exam, but reports pain over right low back/buttock occassionally radiating into RLQ -CT abd/pelvis shows Moderate to severe narrowing of the L3-L4 disc space with sclerotic endplate marrow changes and small endplate osteophytes which is unlikely to be related to patient's symptoms. No midline tenderness, no indication for further imaging at this time -initiate methylprednisolone 60mg BID -toradol 15mg q6h x4 doses -oxycodone prn. can consider tizanidine prn -can continue antiemetics prn likely 2/2 pain -PT eval #Moderate to severe lumbar DDD L3-L4 -outpt follow up dvt prophylaxis- lovenox full code Quality Stroke Does the patient have a stroke diagnosis?: No VTE Prior VTE?: No VTE Risk Level:: Medical - moderate - high VTE Device Contraindication: Treatment Not Indicated VTE Drug Contraindication: N/A - Med Ordered
[2023-05-23] MEDS: Ketorolac Tromethamine 15 MG/ML VIAL IVPUSH ×2 (14:43→19:39)
[2023-05-23] MEDS: methylPREDNISolone Sod Succ 125 MG/2 ML VIAL 60 MG IVPUSH (14:43)
[2023-05-23] MEDS: Omeprazole 20 MG CAPSULE.DR PO (14:43)
--- NOTE | 2023-05-23 14:50 | PC.NURSE ---
pt out of bed and ambulating w pt, reports some pain increased after walking to 5/10, vss, medicated per MAR. pt pending bed assignment.
[2023-05-23] MEDS: 0.9 % Sodium Chloride Flush 3 ML SYRINGE IVFLUSH ×2 (16:54→21:32)
[2023-05-23] MEDS: oxyCODONE HCl Immed Release 5 MG TABLET PO (18:02)
[2023-05-23] MEDS: Enoxaparin Sodium 40 MG/0.4 ML SYRINGE SUBCUT (18:02)
[2023-05-23] MEDS: traMADoL HCL 50 MG TABLET 25 MG PO (22:18)
[2023-05-24] MEDS: methylPREDNISolone Sod Succ 125 MG/2 ML VIAL 60 MG IVPUSH ×2 (00:47→13:40)
[2023-05-24] MEDS: Ketorolac Tromethamine 15 MG/ML VIAL IVPUSH ×2 (00:47→08:14)
[2023-05-24 04:00] VITALS: BP 136/63; PULSE 54; RESP 16; TEMP 36.2; O2SAT 96
--- NOTE | 2023-05-24 05:59 | MHC.PIE ---
late entry 0230 p; pt c/o n/v. note; prn zofran given at 2130 i; dr alberto notified. give early dose e; pt refused med, pt reports she thinks meds are cause of nausea. early dose zofran held per pt request. will cont to monitor
[2023-05-24 07:05] LABS: Basophils Percent Auto 0.1 % (0-2); Hematocrit 35.7 % (37.0-47.0); Hemoglobin 12.3 g/dl (12.0-16.0); Imm Gran Abs Auto 0.09 X10*3/uL (0.00-0.03); Imm Gran Pct Auto 0.9 % (0.0-0.4); Lymphocytes Absolute Auto 0.7 X10*3/uL (1.2-4.9); Lymphocytes Percent Auto 7.3 % (20-40); MANUAL DIFF FLAG SCAN; Mean Corpuscular HGB Conc 34.5 g/dl (31.0-35.0); Mean Corpuscular Hemoglobin 29.5 pg (27.0-33.0); Mean Corpuscular Volume 85.6 fL (80.0-98.0); Mean Platelet Volume 10.7 fL (9.4-12.3); Monocytes Absolute Auto 0.1 X10*3/uL (0.1-1.2); Neutrophils Absolute Auto 9.1 x10*3/uL (2.0-8.3); Neutrophils Percent Auto 90.7 % (45-73); Platelet Count 265 X10*3/uL (160-400); Red Blood Count 4.17 X10*6/uL (4.20-5.50); Red Cell Distribution Width 12.3 % (11.0-16.0); SCAN SMEAR FLAG 1; White Blood Count 10.1 X10*3/uL (4.8-10.8)
[2023-05-24 07:27] VITALS: BP 129/61; PULSE 61; RESP 18; TEMP 36.1; O2SAT 96
[2023-05-24 07:35] LABS: Anion Gap 14 (12-20); Blood Urea Nitrogen 17 mg/dL (9-16); Calcium 8.9 mg/dL (8.4-10.2); Carbon Dioxide 28 mmol/L (22-29); Chloride 99 mmol/L (96-108); Creatinine Clr Calc Pharmacy 52.3; Estimated Glomerular Filt Rate > 60; Glucose Random 156 mg/dL (60-115); Potassium 3.4 mmol/L (3.3-5.1); Sodium 138 mmol/L (135-145)
[2023-05-24 07:53] LABS: SLIDE REVIEW VERIFIED
[2023-05-24] MEDS: Lidocaine 4 % Patch ADH..PATCH 1 PATCH TRANSDERMA (08:15)
[2023-05-24] MEDS: 0.9 % Sodium Chloride Flush 3 ML SYRINGE IVFLUSH (08:16)
--- NOTE | 2023-05-24 10:48 | P.PNIM_ITS ---
Subjective Subjective Date of Service: 05/25/23 Interval History: f/u on back pain Physical Exam 2 Vital Signs: Vital Signs: Last Vital Signs Temp 96.9 F 05/24/23 07:27 Pulse 61 05/24/23 07:27 Resp 18 05/24/23 07:27 BP 129/61 05/24/23 07:27 Pulse Ox 96 05/24/23 07:27 O2 Del Method Room Air 05/24/23 07:27 BMI result Body Mass Index 21.4 General: AO X 3, no acute distress Resp: CTA bilateral CVS: S1,S2,RRR GI: +BS, NT, no distention Skin: No rash Neuro: motor grossly intact, no paresthesia Psych: appropriate affect Objective Data Active Medications Acetaminophen (Acetaminophen 325 Mg Tablet) 650 mg PO Q6H PRN PRN Reason: Pain, Mild (Pain Scale 1-3) Calcium Carbonate (Calcium Carbonate 500 Mg Tablet) 500 mg PO BID [facility] Last Admin: 05/24/23 08:20 Dose: Not Given Documented By: INA Non-Admin Reason: Patient Refused Enoxaparin Sodium (Enoxaparin Sodium 40 Mg/0.4 Ml Syringe) 40 mg SUBCUT Q24H [facility] Last Admin: 05/23/23 18:02 Dose: 40 mg Documented By: MIGUEL Lidocaine (Lidocaine 4 % Patch Adh..Patch) 1 patch TRANSDERMA DAILY [facility]; Protocol Last Admin: 05/24/23 08:15 Dose: 1 patch Documented By: INA Magnesium Oxide (Magnesium Oxide 400 Mg Tablet) 200 mg PO BID [facility] Last Admin: 05/24/23 08:20 Dose: Not Given Documented By: INA Non-Admin Reason: Patient Refused Methylprednisolone Sodium Succinate (Methylprednisolone Sod Succ 125 Mg/2 Ml Vial) 60 mg IVPUSH Q12H [facility] Last Admin: 05/24/23 00:47 Dose: 60 mg Documented By: SHARON Omeprazole (Omeprazole 20 Mg Capsule.Dr) 20 mg PO DAILY@0630 [facility] Last Admin: 05/24/23 06:25 Dose: Not Given Documented By: SHARON Non-Admin Reason: Patient Refused Ondansetron HCl (Ondansetron Hcl 4 Mg/2 Ml Vial) 4 mg IVPUSH Q8H PRN PRN Reason: Nausea and Vomiting Last Admin: 05/23/23 21:42 Dose: 4 mg Documented By: SHARON Oxycodone HCl (Oxycodone Hcl Immed Release 5 Mg Tablet) 5 mg PO Q6H PRN PRN Reason: Pain, Severe (Pain Scale 7-10) Last Admin: 05/23/23 18:02 Dose: 5 mg Documented By: MIGUEL Senna (Sennosides 8.6 Mg Tablet) 17.2 mg PO BEDTIME PRN PRN Reason: Constipation Labs 05/24/23 06:52 05/24/23 06:52 Labs: Laboratory Results - last 24 hr 05/24/23 06:52 MCV 85.6 MCH 29.5 MCHC 34.5 RDW 12.3 Plt Count 265 D MPV 10.7 Immature Gran % (Auto) 0.9 H Neut % (Auto) 90.7 H Lymph % (Auto) 7.3 L [place] % (Auto) 1.0 L Eos % (Auto) 0.0 Baso % (Auto) 0.1 Lymph # (Auto) 0.7 L [place] # (Auto) 0.1 Eos # (Auto) 0.0 Baso # (Auto) 0.0 Abs Immat Gran (auto) 0.09 H Absolute Neuts (auto) 9.1 H Absolute Nucleated RBC 0.000 Nucleated RBC % (auto) 0.0 Smear Tech's Comments VERIFIED Anion Gap 14 Estim Creat Clear Calc 52.3 Estimated GFR > 60 Random Glucose 156 H Calcium 8.9 D Assessment and Plan (1) Intractable back pain: Status: Acute (2) Lower back pain: Status: Acute (3) Right flank pain: Status: Acute Plan 73 year old female with history of SVT, osteoporosis to be observed for intractable low back pain after raking #Intractable right sided low back pain -nonreproducible on exam, but reports pain over right low back/buttock occassionally radiating into RLQ -CT abd/pelvis shows Moderate to severe narrowing of the L3-L4 disc space with sclerotic endplate marrow changes and small endplate osteophytes which is unlikely to be related to patient's symptoms. No midline tenderness, no indication for further imaging at this time -initiate methylprednisolone 60mg BID -toradol 15mg q6h x4 doses -oxycodone prn. can consider tizanidine prn -can continue antiemetics prn likely 2/2 pain -PT eval -Pain is better but persistent -getting a neuro consult #Moderate to severe lumbar DDD L3-L4 -outpt follow up dvt prophylaxis- lovenox Quality Stroke Does the patient have a stroke diagnosis?: No VTE Prior VTE?: No VTE Risk Level:: Medical - moderate - high VTE Device Contraindication: Treatment Not Indicated VTE Drug Contraindication: N/A - Med Ordered
[2023-05-24 11:21] VITALS: BP 129/61; PULSE 61; O2SAT 96
[2023-05-24] MEDS: Acetaminophen 325 MG TABLET 650 MG PO ×2 (13:48→21:21)
--- NOTE | 2023-05-24 15:18 | P.CNNE_ITS ---
History of Present Illness Data of Consult Service Date: 05/24/23 Primary Care Provider: Nemesio Branham MD [facility] Reason for consult: Hip area/LB pain 73 years old woman with no prior history of cancer raked leaves somewhat more than what she usually would due and afterwards noted sharp pain in right lower back/hip area. She said the pain was 10/10 and was localized to that area not radiating to her leg. After some treatment now pain level was 7/10. Pain was more noticeable when she lay on that side a less when she was not. There was no associated tingling or numbness. Bowel bladder function was intact. Review of Systems 2 Review of Systems: No recent fall or trauma or cold or flu-like illness PMFSH Past Medical History Medical History Umbilical hernia Hepatitis C Lumbar degenerative disc disease Anxiety Family History Family History Mother No problems noted. Father No problems noted. Brother No problems noted. Brother Substance abuse Brother No problems noted. Sister No problems noted. Sister No problems noted. Sister Breast cancer Sister Leukemia Sister No problems noted. Son No problems noted. Daughter No problems noted. Daughter No problems noted. Surgical History Surgical History History of cholecystectomy Status post hysterectomy Hx of colonoscopy Social History Social History Household Members: Spouse Housing: House Do you presently have visiting nurse or other home services: No Alcohol intake: former Patient Tobacco Use Status: Former Tobacco user Tobacco use type: Cigarette Years Smoked: QUIT 1999 e-Cigarette/Vaping Use: Never Used Second Hand Smoke Exposure: No Substance Use Type: Marijuana Current occupational status: retired Current occupational exposures/hazards: No Cognitive needs: No Hearing needs: No Vision needs: Yes Meds Allergies Allergy/AdvReac Type Severity Reaction Status Date / Time morphine [MORPHINE] Allergy Intermediate VOMITING, Verified 05/23/23 03:19 stomach upset sertraline Allergy Unknown Unknown Verified 05/23/23 03:19 Active Medications: Current Medications Acetaminophen (Acetaminophen 325 Mg Tablet) 650 mg PO Q6H PRN PRN Reason: Pain, Mild (Pain Scale 1-3) Last Admin: 05/24/23 13:48 Dose: 650 mg Calcium Carbonate (Calcium Carbonate 500 Mg Tablet) 500 mg PO BID [facility] Last Admin: 05/24/23 08:20 Dose: Not Given Enoxaparin Sodium (Enoxaparin Sodium 40 Mg/0.4 Ml Syringe) 40 mg SUBCUT Q24H [facility] Last Admin: 05/23/23 18:02 Dose: 40 mg Lidocaine (Lidocaine 4 % Patch Adh..Patch) 1 patch TRANSDERMA DAILY [facility]; Protocol Last Admin: 05/24/23 08:15 Dose: 1 patch Magnesium Oxide (Magnesium Oxide 400 Mg Tablet) 200 mg PO BID [facility] Last Admin: 05/24/23 08:20 Dose: Not Given Methylprednisolone Sodium Succinate (Methylprednisolone Sod Succ 125 Mg/2 Ml Vial) 60 mg IVPUSH Q12H [facility] Last Admin: 05/24/23 13:40 Dose: 60 mg Omeprazole (Omeprazole 20 Mg Capsule.Dr) 20 mg PO DAILY@0630 [facility] Last Admin: 05/24/23 06:25 Dose: Not Given Ondansetron HCl (Ondansetron Hcl 4 Mg/2 Ml Vial) 4 mg IVPUSH Q8H PRN PRN Reason: Nausea and Vomiting Last Admin: 05/23/23 21:42 Dose: 4 mg Oxycodone HCl (Oxycodone Hcl Immed Release 5 Mg Tablet) 5 mg PO Q6H PRN PRN Reason: Pain, Severe (Pain Scale 7-10) Last Admin: 05/23/23 18:02 Dose: 5 mg Senna (Sennosides 8.6 Mg Tablet) 17.2 mg PO BEDTIME PRN PRN Reason: Constipation Home Medications Medication Instructions Recorded Confirmed Last Taken Type calcium carbonate 500 mg calcium 500 mg PO BID 05/23/23 05/23/23 05/22/23 History (1,250 mg) tablet magnesium 250 mg tablet 250 mg PO BID 05/23/23 05/23/23 05/22/23 History Physical Exam 2 Vital Signs: Vital Signs: Last Vital Signs Temp 96.9 F 05/24/23 07:27 Pulse 61 05/24/23 11:21 Resp 18 05/24/23 07:27 BP 129/61 05/24/23 11:21 Pulse Ox 96 05/24/23 11:21 O2 Del Method Room Air 05/24/23 07:27 BMI result Body Mass Index 21.4 Neuro: Other: She is alert and awake with normal spontaneity of speech fluency comprehension and affect. She does not seem to be in any distress. Was laying on her left side on the side. She pointed to the area where it was hurting. It was in right side lower back to iliac crest area. Deep tendon reflexes were trace with flexor plantars. There was no obvious focal weakness. Results Labs 05/24/23 06:52 05/24/23 06:52 Labs: Short CBC 05/24/23 Range/Units 06:52 WBC 10.1 (4.8-10.8) X10*3/uL Hgb 12.3 (12.0-16.0) g/dl Hct 35.7 L (37.0-47.0) % Plt Count 265 D (160-400) X10*3/uL BMP 05/24/23 06:52 Sodium 138 Potassium 3.4 D Chloride 99 Carbon Dioxide 28 BUN 17 H Creatinine 0.84 Calcium 8.9 D She had CTA of abdomen and pelvis that included lower part of lumbar spine and part of hip joints. It revealed degenerative disease spondylitic disease and facet arthropathy. Assessment and Plan (1) Intractable back pain: Status: Acute Intractable right-sided low back area/hip area pain probably from overuse with underlying facet arthropathy. Nonsteroidal anti-inflammatory agents and heat treatment is recommended. At the same time she is advised to continue to be active with physical therapy. If it is not resolved, a facet injection might also be a consideration in which case I would recommend obtaining an MRI of lumbosacral spine before that. Procedures Date of Service Date of Service: 05/24/23
[2023-05-24 16:00] VITALS: BP 124/58; PULSE 72; RESP 12; TEMP 36.4; O2SAT 97
[2023-05-24] MEDS: Enoxaparin Sodium 40 MG/0.4 ML SYRINGE SUBCUT (18:05)
[2023-05-24] MEDS: traMADoL HCL 50 MG TABLET 25 MG PO (18:51)
[2023-05-24 20:00] VITALS: BP 144/68; PULSE 63; RESP 14; TEMP 36.5; O2SAT 97
--- NOTE | 2023-05-24 21:37 | MHC.PIE ---
p; pt crying in room c/o pain 12/05 to back. pt reports prn tramadol given by earlier rn did nothing for pain. i; dr alberto notified. new order ibuprofen now e; will cont to monitor
[2023-05-24] MEDS: Ibuprofen 800 MG TABLET PO (21:53)
[2023-05-25] MEDS: Ibuprofen 400 MG TABLET PO ×2 (03:15→09:15)
[2023-05-25] MEDS: methylPREDNISolone Sod Succ 125 MG/2 ML VIAL 60 MG IVPUSH (03:15)
[2023-05-25] MEDS: traMADoL HCL 50 MG TABLET 25 MG PO (03:16)
--- NOTE | 2023-05-25 03:19 | MHC.PIE ---
p; pt c/o pain 09/04 to back and groin area asking for ibuprofen. note; pt got ibuprofen earlier as one time dose with good effect i; dr alberto notified. new order ibuprofen prn q6 e; will cont to monitor
[2023-05-25 04:00] VITALS: BP 140/68; PULSE 53; RESP 16; TEMP 36.5; O2SAT 96
[2023-05-25] MEDS: Acetaminophen 325 MG TABLET 650 MG PO ×2 (07:36→13:07)
[2023-05-25 07:43] VITALS: BP 185/74; PULSE 56; RESP 16; TEMP 36; O2SAT 95
[2023-05-25 09:06] VITALS: BP 161/72
--- NOTE | 2023-05-25 09:37 | P.DS_ITS ---
DS: Providers Provider Date of Service: 05/25/23 Date of admission: 05/23/23 13:42 Primary care physician: Nemesio Branham MD Consults: 05/24/23 10:40 Consult to Neurology Routine Consulting Provider: [facility] Reason for consultation: Back pain, with CT changes of the the back DS: Diagnosis Discharge Diagnosis (1) Intractable back pain: Status: Resolved DS: Summary Hospital Course Hospital Course: admission HPI [facility] Complaint: back pain 73 year old female with history of SVT, osteoporosis presented to the ED early this morning for evaluation of severe right sided low back pain radiation into the RLQ. She states pain started while raking on sunday causing her to stop activity. She then attempted raking again yesterday which worsened her pain. Last night into this morning the pain was so severe she was nauseas and vomiting. Pain is described as sharp and stabbing. No burning, pruritus, or rash. Denies midline tenderness. No radiation into the legs. No weakness, p aresthesias, saddle anesthesia, or bowel/bladder dysfunction. Has never had similar pain. Denies falls or specific injury. Since arrival has been intermittently bradycardic while laying down/sleeping in the 40s, but HR 50s-60s while awake. No lightheadedness, sob, syncope. No abd pain, constipation, diarrhea, bloody stools, chest pain. Hematology studies unremarkable. Renal function and electrolytes normal. UA unremarkable. Negative for flu, rsv, covid. Ct abd/pelvis negative for any acute intraabdominal abnormality. There are a few calcifications along the course of the right mid to distal ureter felt to be vascular calcifications rather than ureteric calculi, no hydronephrosis or perinephric stranding. Could consider CT urogram. In the ED, has been given ketorolac, multiple doses IV dilaudid 0.5mg, 50mctg fentanyl, reglan, benadryl, and zofran without much relief. She will be observed for further management of intractable low back pain despite multiple IV narcotics. She is currently reporting pain 2/10 but with any movement, pain becomes severe. hospital course: She presented with acute lower right sided pain radiating to the growing of [place] while raking leaves in the yard. CT of abdomen showed no acute finding, other than a few calcifications along the course of the right mid to distal ureter felt to be vascular calcifications rather than ureteric calculi, no hydronephrosis or perinephric stranding UA was negative. It was suspected that the patient likely had a pulled muscle and has been treated symptomatic with NSAID, heat compression, steroid and has improved but not yet entirely resolved. She was evaluated by Neurologist (Dr. Banuelos) with the following assessment and recommendation:Intractable right-sided low back area/hip area pain probably from overuse with underlying facet arthropathy. Nonsteroidal anti-inflammatory agents and heat treatment is recommended. At the same time she is advised to continue to be active with physical therapy. If it is not resolved, a facet injection might also be a consideration in which case I would recommend obtaining an MRI of lumbosacral spine before that. Time Attestation Discharge Coordination Time (in mins): 35 Quality: Safe Use of Opioids Does Pt have an Active Cancer Diagnosis on the Problem List?: No Quality: Stroke Does the patient have a stroke diagnosis?: No Physical Exam Vital Signs: Vital Signs: Last Vital Signs Temp 96.8 F 05/25/23 07:43 Pulse 56 05/25/23 07:43 Resp 16 05/25/23 07:43 BP 161/72 H 05/25/23 09:06 Pulse Ox 95 05/25/23 07:43 O2 Del Method Room Air 05/25/23 07:43 BMI result Body Mass Index 21.4 General: AO X 3, no acute distress Resp: CTA bilateral CVS: S1,S2,RRR GI: +BS, NT, no distention Skin: No rash Neuro: motor grossly intact Psych: appropriate affect Discharge Plan Discharge Anticipated Discharge Date/Time: 05/25/23 09:33 Patient Disposition: Home, Self-Care Discharge Diagnosis: Back pain Referrals: Yonas,Nemesio Rachel MD [Primary Care Provider] - 1 Week Discharge Medications: New ibuprofen 400 mg Tablet 400 mg PO Q6H PRN (Reason: Pain, Moderate(Pain Scale 4-6)) Qty: 30 0RF cyclobenzaprine 5 mg Tablet 5 mg PO TID PRN (Reason: Muscle Spasm) Qty: 15 0RF Continued calcium carbonate 500 mg calcium (1,250 mg) Tablet 500 mg PO BID magnesium 250 mg Tablet 250 mg PO BID Discharge Orders: Discharge Order (Routine); Ordered 03/29/24 Ordered By: Holland Duenas Diet: Advance to usual diet Activity on Discharge: As tolerated Stand Alone Forms: Patient Portal Discharge page Print Language: Guamanian Care Plan Goals: resolution of pain, and return to normal functioning. Health Concerns: Back pain, pulled muscle Plan of Treatment: take Tylenol or ibuprofen, Flexeril for muscle spasm, avoid strenuous activity or heavy lifting and follow-up with your doctor. If the pain persists he may need further testing Assessment: see above Discharge Date/Time: 05/25/23 14:04
[2023-05-25] MEDS: Cyclobenzaprine HCl 5 MG TABLET PO (10:11)
--- NOTE | 2023-05-25 11:00 | MHC.CM.PN ---
pt lives with has own ride home is independent home no servies
== END 2023-05-25 14:04 | disposition home or self-care (01) ==
LOC: HO.ED 11:53 → HO.EDOVER 13:49 → HO.S3 19:21
PROVIDERS: Student in an Organized Health Care Education/Training Program; Admitting Provider Physician Assistant; Emergency Provider Emergency Medicine Emergency Medical Services; PCP Internal Medicine; Visit Provider Internal Medicine
DX: R10.31 Right lower quadrant pain (principal); M54.9 Dorsalgia, unspecified; M54.50 Low back pain, unspecified; R10.9 Unspecified abdominal pain; M51.36 Other intervertebral disc degeneration, lumbar region; B19.20 Unspecified viral hepatitis C without hepatic coma; Z11.52 Encounter for screening for COVID-19; Z20.828 Contact with and (suspected) exposure to other viral communicable diseases
CPT/HCPCS: 0241U; 36415; 74176; 74178; 80048; 80053; 81001; 84484; 85025; 93005; 96361; 96372; 96374; 96375; 96376; 97161; 99221; 99285; J1170; J1200; J1650; J1885; J2405; J2765; J2930; J3010; Q9967

== ENCOUNTER → 2023-05-23 03:51 | Outpatient (BNV) | payer MEDICARE, SELFPAY | PROVIDERS: Admitting Provider Physician Assistant; Emergency Provider Emergency Medicine Emergency Medical Services; PCP Internal Medicine; Visit Provider Internal Medicine Cardiovascular Disease | DX: R00.1 Bradycardia, unspecified (principal) | CPT/HCPCS: 93010 ==

== ENCOUNTER → 2023-05-23 13:42 | Outpatient (BNV) | payer MEDICARE, SELFPAY | PROVIDERS: Admitting Provider Physician Assistant; Emergency Provider Emergency Medicine Emergency Medical Services; PCP Internal Medicine; Visit Provider Physician Assistant | DX: M54.9 Dorsalgia, unspecified (principal) | CPT/HCPCS: 99222; 99232; 99239 ==

== ENCOUNTER → 2023-05-23 13:42 | Outpatient (BNV) | payer MEDICARE, SELFPAY | PROVIDERS: Admitting Provider Physician Assistant; Emergency Provider Emergency Medicine Emergency Medical Services; PCP Internal Medicine; Visit Provider Psychiatry & Neurology Neurology | DX: M54.59 Other low back pain (principal) | CPT/HCPCS: 99222 ==

== ENCOUNTER 2023-06-08 13:26 | Outpatient (AMB) | payer MEDICARE, SELFPAY ==
[2023-06-08 13:29] VITALS: BP 108/72; PULSE 101; O2SAT 97; BMI 20.4
--- NOTE | 2023-06-08 13:29 | A.OFFPC_ITS ---
Vital Signs 06/08/23 13:29 Height 5 ft 4 in Weight 119 lb BMI 20.4 BP 108/72 Blood Pressure Location Lt brachial Position Sitting Pulse 101 H Pulse Source Pulse Oximeter Pulse Oximetry (%) 97 Oxygen Delivery Method Room Air Intake Visit Reasons: HDF 05/28 discharge rt side pain Intake Note: Patient is here for hospital discharge follow up. Patient was discharged from [facility] on 05/29/2023 Manager Contract Required: No Allergies morphine [MORPHINE] Allergy (Intermediate, Verified 06/08/23 13:30) VOMITING, stomach upset sertraline Allergy (Unknown, Verified 06/08/23 13:30) Unknown Tobacco use date assessed: 06/08/23 Fall risk assessment: No Falls in past year Last assessed Fall Risk: 06/08/23 Dental Screening Dental Screen Date: 06/08/23 Did you have a dental visit in the last 12 months?: Yes Did you have a dental problem in the last 6 months where you did not have access to dental care?: No Was dental information given to patient?: Patient has dentist HPI HDF 05/28 discharge rt side pain HPI Details 73-year-old female with a history of imp aired glucose tolerance coming in for an acute problem. Patient was last seen in July 2022. Was in the hospital recently in 05/23/2023 diagnosis of back pain severe right-sided low back pain radiating to the right lower quadrant noted while raking last July had palpitations and went for Holter which showed sinus rhythm with first-degree AV block episodes of narrow complex tachycardia SVT had a nighttime pulse of 2 0.9 seconds no symptoms. Palpitations correlates with SVT. [facility] Medical History (Updated 06/08/23 @ 14:27 by Nemesio Branham MD) Umbilical hernia Hepatitis C Lumbar degenerative disc disease Anxiety Surgical History History of cholecystectomy Status post hysterectomy Hx of colonoscopy Family History Mother No problems noted. Father No problems noted. Brother No problems noted. Brother Substance abuse Brother No problems noted. Sister No problems noted. Sister No problems noted. Sister Breast cancer Sister Leukemia Sister No problems noted. Son No problems noted. Daughter No problems noted. Daughter No problems noted. Social History Household Members: Spouse Housing: House Do you presently have visiting nurse or other home services: No Alcohol intake: former Patient Tobacco Use Status: Former Tobacco user Tobacco use type: Cigarette Years Smoked: QUIT 1999 e-Cigarette/Vaping Use: Never Used Second Hand Smoke Exposure: No Substance Use Type: Marijuana service: No Current occupational status: retired Current occupational exposures/hazards: No Cognitive needs: No Hearing needs: No Vision needs: Yes Questionnaire PHQ-9 Over the last 2 weeks, how often have you been bothered by any of the following problems? 1. Little interest or pleasure in doing things: not at all 2. Feeling down, depressed, or hopeless: not at all 3. Trouble falling or staying asleep, or sleeping too much: not at all 4. Feeling tired or having little energy: not at all 5. Poor appetite or overeating: not at all 6. Feeling bad about yourself - or that you are a failure or have let yourself or your family down: not at all 7. Trouble concentrating on things, such as reading the newspaper or watching television: not at all 8. Moving or speaking so slowly that other people could have noticed. Or the opposite - being so fidgety or restless that you have been moving around a lot more than usual: not at all 9. Thoughts that you would be better off or of hurting yourself in some way: not at all Total score: 0 Depression Screening Interpretation: Negative Depression Screening Done: Yes Source: Developed by Drs. Taye Bustillo, Naomi Whitaker, oCnrado Garcia and colleagues, with an educational leonel from [employer]. Thrive Questionnaire Date Thrive assessed: 06/08/23 I am a: Patient What is your living situation today?: I have a steady place to live Within the past 12 months, did the food you bought not last and you didn't have the money to get more?: Never true Within the past 12 months, did you worry whether your food would run out before you got money to buy more?: Never true Do you have trouble paying for medicines?: No Do you have trouble getting transportation to medical appointments?: No Do you have trouble paying your heating and electricity bill?: No Do you have trouble taking care of your child, family member or friend?: No Do you have trouble with day-to-day activities such as bathing, preparing meals, shopping, managing finances, etc.?: No Are you currently unemployed and looking for a job?: No Are you interested in more education?: No Please select the resources that you would like help with: None Currently or been in a relationship where the following occur: no concerns reported THRIVE Score: 0 AUDIT C Alcohol Use Questionnaire (AUDIT-C) 1. How often do you have a drink containing alcohol?: Never 3. How often do you have six or more drinks on one occasion?: Never Total Score: 0 TAMICA-7 AMB Questionnaire TAMICA-7 Date TAMICA - 7 assessed: 06/08/23 Feeling nervous, anxious, or on edge: 0 = Not at all Not being able to stop or control worryin = Not at all Worrying too much about different things: 0 = Not at all Trouble relaxin = Not at all Being so restless that it is hard to sit still: 0 = Not at all Becoming easily annoyed or irritable: 0 = Not at all Feeling afraid as if something awful might happen: 0 = Not at all Total TAMICA-7 score (0-4 normal; 5-9 mild; 10-14 moderate; 15-21 severe): 0 Source: Developed by Drs. Taye Bustillo, Naomi Whitaker, Conrado Garcia and colleagues, with an educational leonel from [employer]. Physical exam (Primary Care) Vital Signs: Last Vital Signs Pulse 101 H 06/08/23 13:29 BP 108/72 06/08/23 13:29 Pulse Ox 97 06/08/23 13:29 Oxygen Delivery Method Room Air 06/08/23 13:29 BMI result Body Mass Index 20.4 Tobacco/Smoking Status: Tobacco use Status Tobacco use date assessed 06/08/23 06/08/23 13:31 Patient Tobacco Use Status Former Tobacco user 06/08/23 13:30 Tobacco use type Cigarette 06/08/23 13:30 e-Cigarette/Vaping Use Never Used 06/08/23 13:30 PHQ-9: PHQ-9 Score PHQ-9: Total score 0 06/08/23 13:44 Depression Screening Interpretation: Negative Thrive Assessment: Date of Thrive Assessment Date Thrive assessed 06/08/23 06/08/23 13:31 Currently or been in a relationship where the following occur: no concerns reported Const General: alert; No acute distress Eyes Conjunctivae: conjunctivae normal Resp Auscultation: clear to auscultation bilaterally Cardio Rate: regular rate Rhythm: regular rhythm GI Inspection: Yes normal to inspection Extrem General: Yes normal to inspection and No edema Assessment and Plan Assessment & Plan (1) SVT (supraventricular tachycardia): Comment: August 2022 Code(s): I47.1 - Supraventricular tachycardia Plan: presently no problem and did not need to take metoprolol (2) Lower back pain: Code(s): M54.50 - Low back pain, unspecified Qualifiers: Back pain laterality: right Chronicity: acute Sciatica presence: without sciatica Qualified Code(s): M54.50 - Low back pain, unspecified Plan: resolving (3) Umbilical hernia: Code(s): K42.9 - Umbilical hernia without obstruction or gangrene Plan: Discussed about avoiding heavy lifting Coding Level of Care Code Est Pt Level 4 (57888) Diagnoses SVT (supraventricular tachycardia) I47.1 Lower back pain M54.50 Back pain laterality: right Chronicity: acute Sciatica presence: without sciatica Umbilical hernia K42.9
== END 2023-06-08 14:36 | disposition home or self-care (01) ==
PROVIDERS: PCP Internal Medicine; Visit Provider Internal Medicine
DX: I47.10 Supraventricular tachycardia, unspecified (principal); M54.50 Low back pain, unspecified; K42.9 Umbilical hernia without obstruction or gangrene
CPT/HCPCS: 99214

== ENCOUNTER 2023-11-09 12:10 | Outpatient (AMB) | payer MEDICARE, SELFPAY ==
[2023-11-09 12:33] VITALS: BP 118/60; PULSE 57; O2SAT 95; BMI 21.3
--- NOTE | 2023-11-09 12:33 | A.OFFPC_ITS ---
Vital Signs 11/09/23 12:33 Height 5 ft 4 in Weight 124 lb BMI 21.3 BP 118/60 Blood Pressure Location Lt brachial Position Sitting Pulse 57 Pulse Source Pulse Oximeter Pulse Oximetry (%) 95 Oxygen Delivery Method Room Air Intake Visit Reasons: PE Verifying Specialist Required: No Accompanied by: Self / Same As Patient Allergies morphine [MORPHINE] Allergy (Intermediate, Verified 11/09/23 12:40) VOMITING, stomach upset sertraline Allergy (Unknown, Verified 11/09/23 12:40) Unknown Medication List - Last Reconciled 11/09/23 by Nemesio Branham MD No Known Home Meds Tobacco use date assessed: 06/08/23 Fall risk assessment: No Falls in past year Last assessed Fall Risk: 11/09/23 Dental Screening Dental Screen Date: 06/08/23 HPI PE HPI Details 73 year old female with a history of SVT impaired glucose tolerance umbilical hernia coming in for physical exam. Last seen in May 2023. Patient's colonoscopy is up-to-date. Bone density is up-to-date patient is due for mammogram. [facility] Medical History (Updated 11/09/23 @ 12:52 by Nemesio Branham MD) Palpitations Age-related osteoporosis without current pathological fracture Umbilical hernia Hepatitis C Lumbar degenerative disc disease Anxiety Surgical History History of cholecystectomy Status post hysterectomy Hx of colonoscopy Family History Mother No problems noted. Father No problems noted. Brother No problems noted. Brother Substance abuse Brother No problems noted. Sister No problems noted. Sister No problems noted. Sister Breast cancer Sister Leukemia Sister No problems noted. Son No problems noted. Daughter No problems noted. Daughter No problems noted. Social History (Updated 11/09/23 @ 12:44 by Nemesio Branham MD) Household Members: Spouse Housing: House Do you presently have visiting nurse or other home services: No Alcohol intake: former Comment: last drink(11/09/2023) 1.5 months Patient Tobacco Use Status: Former Tobacco user Tobacco use type: Cigarette Years Smoked: QUIT 1999 e-Cigarette/Vaping Use: Never Used Second Hand Smoke Exposure: No Substance Use Type: Marijuana service: No Current occupational status: retired Current occupational exposures/hazards: No Cognitive needs: No Hearing needs: No Vision needs: Yes Questionnaire PHQ-9 Over the last 2 weeks, how often have you been bothered by any of the following problems? 3. Trouble falling or staying asleep, or sleeping too much: nearly every day 4. Feeling tired or having little energy: several days Source: Developed by Drs. Taye Bustillo, Naomi Whitaker, Conrado Garcia and colleagues, with an educational leonel from [employer]. Thrive Questionnaire Date Thrive assessed: 06/08/23 I am a: Patient What is your living situation today?: I have a steady place to live Within the past 12 months, did the food you bought not last and you didn't have the money to get more?: Sometimes True Within the past 12 months, did you worry whether your food would run out before you got money to buy more?: Sometimes True Do you have trouble paying for medicines?: No Do you have trouble getting transportation to medical appointments?: No Do you have trouble paying your heating and electricity bill?: No Do you have trouble taking care of your child, family member or friend?: I choose not to answer this question Do you have trouble with day-to-day activities such as bathing, preparing meals, shopping, managing finances, etc.?: I choose not to answer this question Are you currently unemployed and looking for a job?: No Are you interested in more education?: I choose not to answer this question Please select the resources that you would like help with: Food and Daily support Currently or been in a relationship where the following occur: I choose not to answer THRIVE Score: 2 AUDIT C Alcohol Use Questionnaire (AUDIT-C) 1. How often do you have a drink containing alcohol?: 2-4 times a month 2. How many drinks containing alcohol do you have on a typical day when you are drinking?: 1 or 2 3. How often do you have six or more drinks on one occasion?: Never Total Score: 2 TAMICA-7 AMB Questionnaire TAMICA-7 Date TAMICA - 7 assessed: 06/08/23 Feeling nervous, anxious, or on edge: 2 = More than half the days Not being able to stop or control worryin = Several days Worrying too much about different things: 1 = Several days Trouble relaxin = Several days Being so restless that it is hard to sit still: 0 = Not at all Becoming easily annoyed or irritable: 1 = Several days Feeling afraid as if something awful might happen: 0 = Not at all Total TAMICA-7 score (0-4 normal; 5-9 mild; 10-14 moderate; 15-21 severe): 6 Source: Developed by Drs. Taye Bustillo, Naomi Whitaker, Conrado Garcia and colleagues, with an educational leonel from [employer]. Review of Systems Const Denies poor appetite and Denies weakness Eyes Denies no additional complaints ENT Reports Normal hearing present, Denies dizziness, Denies nasal congestion, Denies tinnitus and Denies sore throat Card Denies chest pain, Denies syncope, Denies rapid heart rate and Denies dyspnea Resp Denies cough and Denies dyspnea GI Denies change in stool character, Reports constipation, Denies diarrhea, Denies nausea and Denies vomiting Denies urinary frequency, Denies difficulty voiding and Denies dysuria Neuro Reports Normal hearing present, Denies confusion, Denies dizziness, Denies syncope and Denies weakness Psych Denies confusion Physical exam (Primary Care) BMI result Body Mass Index 21.3 Tobacco/Smoking Status: Tobacco use Status Tobacco use date assessed 06/08/23 06/08/23 13:31 Patient Tobacco Use Status Former Tobacco user 06/08/23 13:30 Tobacco use type Cigarette 06/08/23 13:30 e-Cigarette/Vaping Use Never Used 06/08/23 13:30 Thrive Assessment: Date of Thrive Assessment Date Thrive assessed 06/08/23 06/08/23 13:31 Currently or been in a relationship where the following occur: I choose not to answer Const General: No confusion Orientation/consciousness: No confusion HENMT Head: Yes normocephalic Ears: external ears normal and TM's normal bilaterally Face and sinus: Yes normal facial exam Mouth: moist mucous membranes Throat: Yes tonsils normal Eyes Conjunctivae: conjunctivae normal Pupils: Equal, round and reactive pupils present and Pupil accommodation reflex normal Direct Ophthalmoscopy: normal light reflex Neck Neck: No lymphadenopathy Thyroid: Thyroid normal Chest Chest palpation & inspection: normal inspection of the chest Resp Effort & Inspection: normal respiratory effort and no audible wheezes Auscultation: clear to auscultation bilaterally, no crackles, no wheezes and lung sounds not diminished Cardio Rate: regular rate Rhythm: regular rhythm Peripheral pulses: radial pulses present and dorsalis pedis present GI Palpation (GI): no masses Auscultation: normal bowel sounds and normoactive bowel sounds Rectal Exam - Female: deferred Skin General skin exam: no rashes or lesions noted Rashes: no rashes Neuro General: No confusion Cranial nerves: Yes Equal, round and reactive pupils present and Yes Normal hearing present Cognition (Neuro): normal cognition Gait exam (Neuro): Normal gait present Motor exam (neuro): 5/5 motor strength present throughout Deep tendon reflexes (DTR's): Right brachioradialis reflex intensity grade: 2+, Left brachioradialis reflex intensity grade: 2+, Right patellar reflex intensity grade: 2+ and Left patellar reflex intensity grade: 2+ Extrem General: No edema Assessment and Plan Assessment & Plan (1) Annual physical exam: Code(s): Z00.00 - Encounter for general adult medical examination without abnormal findings (2) Impaired fasting glucose: Code(s): R73.01 - Impaired fasting glucose (3) Breast cancer screening by mammogram: Code(s): Z12. - Encounter for screening mammogram for malignant neoplasm of breast (4) SVT (supraventricular tachycardia): Comment: August 2022 Code(s): I47.1 - Supraventricular tachycardia (5) Colon cancer screening: Code(s): Z12.11 - Encounter for screening for malignant neoplasm of colon Orders: Orders MM tomosynthesis screening BI Today Z12. - Encounter for screening mammogram for malignant neoplasm of breast Referrals Gastroenterology Referral Z12.11 - Encounter for screening for malignant neoplasm of colon Coding Level of Care Code Est Pt Prev Care >65y(25724) Diagnoses Annual physical exam Z00.00 Impaired fasting glucose R73.01 Breast cancer screening by mammogram Z. SVT (supraventricular tachycardia) I47.1 Colon cancer screening Z12.
== END 2023-11-09 12:57 | disposition home or self-care (01) ==
PROVIDERS: PCP Internal Medicine; Visit Provider Internal Medicine
DX: Z00.00 Encounter for general adult medical examination without abnormal findings (principal); R73.01 Impaired fasting glucose; Z12.31 Encounter for screening mammogram for malignant neoplasm of breast; I47.10 Supraventricular tachycardia, unspecified; Z12.11 Encounter for screening for malignant neoplasm of colon
CPT/HCPCS: 99397

== ENCOUNTER 2024-04-28 08:17 | Outpatient (AMB) | payer MEDICARE, SELFPAY ==
[2024-04-28 08:24] VITALS: BP 152/68; PULSE 58; O2SAT 97; BMI 22.4
--- NOTE | 2024-04-28 08:24 | A.OFFVIS_ITS ---
Vital Signs 04/28/24 08:24 Height 5 ft 4 in Weight 130 lb 8.218 oz BMI 22.4 BP 152/68 H Blood Pressure Location Rt brachial Position Sitting Pulse 58 Pulse Source Pulse Oximeter Pulse Oximetry (%) 97 Oxygen Delivery Method Room Air Intake Visit Reasons: Colonoscopy consultation, est w/ Tg Intake Note: ESTABLISHED PATIENT for rescreening. VICENTE 2021. Chief Complaint; C/O only a chronic abnormal sensation in the RUQ. Pt states that she feels as if there is a moving mass in the RUQ that has been present for many years . Upon asking, pt denies any additional GI related concerns. Diagram Clerk Required: No Accompanied by: Self / Same As Patient Allergies morphine [MORPHINE] Allergy (Intermediate, Verified 04/28/24 08:24) VOMITING, stomach upset sertraline Allergy (Unknown, Verified 04/28/24 08:24) Unknown HPI HPI Colonoscopy consultation, hermila العراقي/ Tg: Details: LAST VISIT: 05/05/2021 Screen for colon cancer We will hold off on going for colonoscopy and see what is causing patient's pain. Most likely musculoskeletal her possibility of hernia, however not excluded diverticulitis, pancreatitis. I will see her in 2 months and we will rediscuss colonoscopy. Abdominal discomfort Right upper quadrant pain patient is status post cholecystectomy. Will order CT scan to check for any abnormalities, will order lipase, CMP, CBC, vitamin-D level as well as thyroid study. I will see patient in 2 months to will evaluate her. Patient is agreeable to this plan and verbalizes understanding of instructions. She was given the opportunity to ask questions and all questions answered. ? Thank you for allowing me to participate in her care Plan Orders Orders Comprehensive Met. Panel 05/05/21 Z12.11 Lipase 05/05/21 R19.7 TSH reflex Free T4 05/05/21 Z12.11 Vitamin D 25-OH (D2 and D3) 05/05/21 E55.9 Complete Blood Count no Diff 05/05/[address] abdomen pelvis w con 05/12/21 R10.9 TODAY'S VISIT Patient was seen almost 3 years ago for pre colonoscopy screening. Patient was complaining then of right upper quadrant discomfort. Patient has been dealing with this pain for very long time. Seen last year in the ER for this, CT scan did not show any acute processes. Patient reports that she is feeling well when she is following healthy diet. Recently patient has been eating lot of food that she knows she should avoid. Patient denies any issues with anesthesia in the past. No history of sleep apnea. Patient was diagnosed hep C long time ago and treated almost 10 years ago. Patient denies any cardiac or respiratory symptoms. Not on any anticoagulation medication. No family history of CRC [facility] Medical History Palpitations Age-related osteoporosis without current pathological fracture Umbilical hernia Hepatitis C Lumbar degenerative disc disease Anxiety Surgical History History of cholecystectomy Status post hysterectomy Hx of colonoscopy Family History Mother No problems noted. Father No problems noted. Brother No problems noted. Brother Substance abuse Brother No problems noted. Sister No problems noted. Sister No problems noted. Sister Breast cancer Sister Leukemia Sister No problems noted. Son No problems noted. Daughter No problems noted. Daughter No problems noted. Social History Household Members: Spouse Housing: House Do you presently have visiting nurse or other home services: No Alcohol intake: former Comment: last drink(11/09/2023) 1.5 months Patient Tobacco Use Status: Former Tobacco user Tobacco use type: Cigarette Years Smoked: QUIT 1999 e-Cigarette/Vaping Use: Never Used Second Hand Smoke Exposure: No Substance Use Type: Marijuana service: No Current occupational status: retired Current occupational exposures/hazards: No Cognitive needs: No Hearing needs: No Vision needs: Yes Review of Systems Const Denies weight gain and Denies weight loss ENT Reports no additional complaints, Denies dysphagia and Denies odynophagia Card Reports no additional complaints Resp Reports no additional complaints GI Reports abdominal pain (Occasional RUQ), Denies belching, Denies melena, Denies bloating, Denies change in bowel habits, Denies dysphagia, Denies excessive flatus, Denies dyspepsia, Denies heartburn, Denies diarrhea, Denies loose stools, Denies nausea, Denies odynophagia and Denies vomiting Reports no additional complaints Musc Reports no additional complaints Neuro Reports no additional complaints Psych Reports no additional complaints Endo Reports no additional complaints Physical Exam Vital Signs: BMI result Body Mass Index 22.4 Const General: healthy appearing, no acute distress and well developed Nutritional Appearance: well nourished Orientation/consciousness: patient oriented x3 Resp Effort & Inspection: normal respiratory effort, able to speak in complete sentences, no tracheal deviation and symmetric chest movement Auscultation: clear to auscultation bilaterally Cardio Rate: regular rate GI Inspection: Yes normal to inspection and No distended Palpation (GI): Soft to palpation, not firm, nontender and No hepatosplenomegaly present Auscultation: normal bowel sounds General: Yes no CVA tenderness Back/Spine/Pelvis Back: no CVA tenderness Skin General skin exam: elasticity normal, turgor normal and dry skin Neuro General: patient oriented x3 Psych Appearance: grossly normal Mental Status: mental status grossly normal Results Reviewed Results Reviewed: CT scan of abdomen and pelvis 05/23/2023 IMPRESSION: 1. No evidence of acute abnormality in the right lower quadrant to explain patient's symptoms. 2. No evidence of radiopaque urinary tract calculi, hydroureteronephrosis or perinephric stranding. A few calcifications along the course of the right mid to distal ureter are felt to represent vascular calcifications rather than ureteric calculi as detailed above. No evidence of hydroureteronephrosis or perinephric stranding. 3. Trace perisplenic free fluid and findings suggestive of mild periportal edema. Findings are nonspecific and probably related to overhydration. Recommend clinical correlation. 4. Stable appearance of the appendix without evidence of acute appendicitis. Fecalization in the distal ileal loops may suggest slow transit. 5. Fat-containing umbilical hernia. Assessment & Plan Assessment & Plan (1) Colon cancer screening: Code(s): Z12.11 - Encounter for screening for malignant neoplasm of colon Category: Medical Plan What to expect before during and after procedure discussed with patient. Stressed the importance of good bowel prep and clear liquid diet day before procedure. Patient denies any issues with anesthesia in the past. No history of sleep apnea. Not on any anticoagulation medication. Patient reports that she is moving her bowels daily without any issues. Denies melena, hematochezia, unintentional weight loss or ribbon like stools. Patient will follow-up in our office after the procedure. She will call us if she will have any GI concerning symptoms. Patient is agreeable to current plan of care and verbalizes understanding of instructions. She was given the opportunity to ask questions and all questions answered. Thank you for allowing me to participate in her care Medications: New polyethylene glycol 3350 (Miralax) As directed by gastroenterology department at [facility] 238 grams PO ONCE 238 grams 0RF Z12.11 - Encounter for screening for malignant neoplasm of colon bisacodyl (Dulcolax (bisacodyl)) take 4 tabs at noon the day before your colonoscopy 20 mg (4 x 5 mg) PO ONCE 1 day 4 tabs 0RF constipation Z12.11 - Encounter for screening for malignant neoplasm of colon Coding Level of Care Code Est Pt Level 3 (27475) Diagnoses Colon cancer screening Z12.11 Time Spent (min) 30 Comment 20 minutes spent with patient and additional 10 minutes spent reviewing her records
--- OUTSIDE RECORDS SUMMARY | 2024-04-28 08:30 | XMS_ITS | Clinical Summary ---
Author Organization [employer] Address [address] [place] [address] 7[address] [place] [address] Care Team Providers Care Pressroom Worker Name Role Phone Sarina Braswell CRAFT SUPERINTENDENT Primary Care Provider [phone] Haley Zacarias Unavailable Unavailable Allergies Active Allergy Reactions Criticality Noted Date Comments Morphine Other 07/08/2020 Nausea and vomiting Medications No known medications Active Problems No known active problems Encounters Date Type Department Care Team Description 04/08/2024 4:00 PM EST Office Visit [facility] [address] [place] [address] Ricardo Craftsad, BDS 04/08/2024 8:00 AM EST Office Visit [facility] [address] [place] [address] Ricardo Craftsad, BDS 04/07/2024 3:00 PM EST Office Visit [facility] [address] [place] [address] MakonaRicardo bustillosad, BDS 02/01/2024 Patient Outreach [facility] [address] [place] [address] Haley Zacarias from Last 3 Months Immunizations Name Administration Dates Next Due Pneumococcal Polysaccharide PPSV23 03/16/2016 Tdap 11/25/2012 Social History Tobacco Use Types Packs/Day Years Used Date Smoking Tobacco: Former Cigarettes Q uit: 2002 Smokeless Tobacco: Never Tobacco Cessation:Counseling Given: Not Answered Alcohol Use Standard Drinks/Week Comments Defer 0 (1 standard drink = 0.6 oz pur e alcohol) Comments Unknown Sex and Gender Information Value Date Recorded Sex Assigned at Female 12/26/2021 10:38 AM EDT Legal Sex Female 10:38 AM EDT Gender Identity Female 12/26/2021 10:38 AM EDT Sexual Orientation Don't know 12/26/2021 10 :38 AM EDT Last Filed Vital Signs Vital Sign Reading Time Taken Comments Blood Pressure 150/78 05/30/2022 10:12 AM EDT Pulse 63 05/30/2022 10:12 AM EDT Temperature - - Respiratory Rate - - Oxygen Saturation - - Inhaled Oxygen Concentration - - Weight 58.1 kg (128 lb) 02/03/2021 12:12 AM EST Height 162.6 cm (5' 4 ) 02/03/2021 12:12 AM EST Body Mass Index 21.97 02/03/2021 12:12 AM EST Plan of Treatment Health Maintenance Due Date Last Done Comments CT Colonography 1951 Dental Prophylaxis 1951 Dental X-Ray: Bitewings 1951 Dental X-Ray: Full Mouth 1951 Depression Screening 1951 FIT DNA/Cologuard 1951 FIT 1951 FOBT 1951 SDOH Screening 1951 Sigmoidoscopy 1951 Alcohol/Substance Use Screening 1963 Hepatitis C Screening 1969 Zoster Vaccines (1 of 2) 2001 Mammogram 12/21/2013 12/22/2011 HPV/Cotest 08/13/2014 08/13/2009 Pap Smear 08/13/2014 08/13/2009 Colonoscopy 10/24/2015 10/23/2005 Colorectal Cancer Screening 10/24/2015 DTaP/Tdap/Td Vaccines (2 - T d or Tdap) 11/25/2022 11/25/2012 Dental Oral Exam 11/30/2022 05/30/2022 COVID-19 Vaccine (3 - 2023-2 5 season) 2023 07/12/2020, 06/21/2020 Influenza Vaccine (#1) 2023 Tobacco Screening 04/08/2025 04/08/2024 RSV Patients and Patients Aged 60 years or older (1 - 1-dose 75+ series) 2026 Pneumococcal Vaccine: 50+ Years Completed 08/04/2022, 03/16/2016 HIB Vaccines Aged Out No longer eligi ble based on patient's age to complete this topic HPV Vaccines Aged Out No longer eligi ble based on patient's age to complete this topic Hepatitis A Vaccines Aged Out No long er eligible based on patient's age to complete this topic Hepatitis B Vaccines Aged Out No long er eligible based on patient's age to complete this topic IPV Vaccines Aged Out No longer eligi ble based on patient's age to complete this topic Meningococcal Vaccine Aged Out No lorena lawson eligible based on patient's age to complete this topic RSV under 20 months Aged Out No longe r eligible based on patient's age to complete this topic Rotavirus Vaccines Aged Out No longer eligible based on patient's age to complete this topic Procedures Procedure Name Priority Date/Time Associated Diagnosis Comments RELINE COMPLETE MANDIBULAR DENTURE (LABORATORY) Routine 04/08/2024 4:00 PM EST NO CHARGE PROCEDURE Routine 04/08/2024 8 :00 AM EST LIMITED ORAL EVALUATION - PROBLEM FOCUSED Routine 04/07/2024 3:00 PM EST COMPREHENSIVE ORAL EVALUATION - NEW OR ESTABLISHED PATIENT Routine 05/30/2022 10:00 AM EDT Periodontosis MAMMOGRAPHY Routine 12/22/2011 THIN PREP PAP, WITH HPV Routine 08/13/2009 12:00 AM EDT COLONOSCOPY Routine 10/23/2005 12:00 AM EDT from Last 3 Months or Most Recently Relevant to Health Maintenance Results * Mammography (12/22/2011) Mammogram BI-RADS 1 Negative Anatomical Region Laterality Modality Other us Historical Provider HEALTH MAINTENANCE Final Result * THIN PREP PAP, WITH HPV (08/13/2009 12:00 AM EDT) us Historical Provider LAB CYTOLOGY ORDERABLES F inal Result [facility] [address] [place] [address] * COLONOSCOPY: DAVID. ANIYA VALVERDE (10/23/2005 12:00 AM EDT) Anatomical Region Laterality Modality Endoscopy 10/23/2005 Narrative 10/23/2005 12:00 AM EDT Refer to Fovea for result details Legacy Procedure: COLONOSCOPY: DAVID. ANIYA VALVERDE Procedure Note Provider, Valorie, - 06/22/2022 Refer to Fovea for result details Legacy Procedure: COLONOSCOPY: DAVID. ANIYA VALVERDE Historical Provider ENDOSCOPY PROCEDURE ORDER GEORGE Final Result from Last 3 Months or Most Recently Relevant to Health Maintenance Insurance [facility] PPO DENTAL [facility] FULL (MEDICAID) Care Teams Pressroom Worker Relationship Specialty Start Date End Date Sarina Braswell FNP [address] [place] [address] PCP - General Family Medicine 01/27/22 Haley Zacarias Health Navigator 10/09/23
--- OUTSIDE RECORDS SUMMARY | 2024-04-28 08:31 | XMS_ITS | Encounter Summary ---
Author Organization [employer] Address [address] [place] [address] 7 [place] [address] Care Team Providers Care Embossing Press Operator Name Role Phone Sarina Braswell SWITCHBOARD INSTALLER Primary Care Provider [phone] Haley Zacarias Unavailable Unavailable Reason for Visit * Reason Comments Dentures relign Encounter Details Date Type Department Care Team (Late st Contact Info) Description 04/08/2024 8:00 AM EST Office Visit [facility] [address] [place], [place] [phone] Sun Craft BDS [address] [place] [address] Social History Tobacco Use Types Packs/Day Years Used Date Smoking Tobacco: Former Cigarettes Q uit: 2002 Smokeless Tobacco: Never Alcohol Use Standard Drinks/Week Comments Defer 0 (1 standard drink = 0.6 oz pur e alcohol) Comments Unknown Sex and Gender Information Value Date Recorded Sex Assigned at Female 12/26/2021 10:38 AM EDT Legal Sex Female 10:38 AM EDT Gender Identity Female 12/26/2021 10:38 AM EDT Sexual Orientation Don't know 12/26/2021 10 :38 AM EDT documented as of this encounter Progress Notes * Sun Craft BDS - 04/08/2024 8:00 AM EST Wash impression taken,sent lower for lab reline documented in this encounter Plan of Treatment Not on file documented as of this encounter Procedures Procedure Name Priority Date/Time Associated Diagnosis Comments NO CHARGE PROCEDURE Routine 04/08/2024 8:00 AM EST documented in this encounter Visit Diagnoses Not on filedocumented in this encounter Care Teams Embossing Press Operator Relationship Specialty Start Date End Date Sarina Braswell FNP [address] [place] [address] PCP - General Family Medicine 01/27/22 Haley Zacarias Health Navigator 10/09/23 documented as of this encounter
--- OUTSIDE RECORDS SUMMARY | 2024-04-28 08:31 | XMS_ITS | Encounter Summary ---
Author Organization [employer] Address [address] [place] [address] 7 [place] [address] Care Team Providers Care Stripper Apprentice Name Role Phone Sarina Braswell RE ETCHER Primary Care Provider [phone] Haley Zacarias Unavailable Unavailable Reason for Visit * Reason Comments Dentures Deliver full lower d enture Encounter Details Date Type Department Care Team (Late st Contact Info) Description 04/08/2024 4:00 PM EST Office Visit [facility] [address] [place] [address] Sun Craft BDS [address] [place] [address] Social History Tobacco Use Types Packs/Day Years [...] Notes * Sun Craft BDS - 04/08/2024 4:00 PM EST Reline done,patient hapy documented in this encounter Plan of Treatment Not on file documented as of this encounter Procedures Procedure Name Priority Date/Time Associated Diagnosis Comments RELINE COMPLETE MANDIBULAR DENTURE (LABORATORY) Routine 04/08/2024 4:00 PM EST documented in this encounter Visit Diagnoses Not on filedocumented in this encounter Care Teams Stripper Apprentice Relationship Specialty Start Date End Date Sarina Braswell FNP [address] [place] [address] PCP - General Family Medicine 01/27/22 Haley Zacarias Health Navigator 10/09/23 documented as of this encounter
--- OUTSIDE RECORDS SUMMARY | 2024-04-28 08:31 | XMS_ITS | Encounter Summary ---
Author Organization [employer] Address [address] [place] [address] 7 [place] [address] Care Team Providers Care Major Appliance Assembly Supervisor Name Role Phone Sarina Braswell Primary Care Provider [phone] Haley Zacarias Unavailable Unavailable Reason for Visit * Reason Comments Dentures Encounter Details Date Type Department Care Team (Late st Contact Info) Description 04/07/2024 3:00 PM EST Office Visit [facility] [address] [place] [address] Sun Craft BDS [address] [place] [address] Social History Tobacco Use Types Packs/Day Years [...] Progress Notes * Sun Craft BDS - 04/07/2024 3:00 PM EST Patient c/o loss of retention of dentures.Denture was done May 2022 ,Adv Reline ,to check with insurance. documented in this encounter Plan of Treatment Not on file documented as of this encounter Procedures Procedure Name Priority Date/Time Associated Diagnosis Comments LIMITED ORAL EVALUATION - PROBLEM FOCUSED Routine 04/07/2024 3:00 PM EST documented in this encounter Visit Diagnoses Not on filedocumented in this encounter Care Teams Major Appliance Assembly Supervisor Relationship Specialty Start Date End Date Sarina Braswell FNP [address] [place] [address] PCP - General Family Medicine 01/27/22 Haley Zacarias Health Navigator 10/09/23 documented as of this encounter
== END 2024-04-28 11:02 | disposition home or self-care (01) ==
PROVIDERS: PCP Internal Medicine; Visit Provider Nurse Practitioner Family
DX: Z01.818 Encounter for other preprocedural examination (principal); Z12.11 Encounter for screening for malignant neoplasm of colon
CPT/HCPCS: 99024

== ENCOUNTER → 2024-04-28 08:17 | Outpatient (BNVA) | payer MEDICARE, SELFPAY | PROVIDERS: PCP Internal Medicine; Visit Provider Nurse Practitioner Family | DX: Z12.11 Encounter for screening for malignant neoplasm of colon (principal) | CPT/HCPCS: 99212 ==

== ENCOUNTER 2024-06-06 09:23 | Outpatient (AMB) | payer MEDICARE, SELFPAY ==
--- NOTE | 2024-06-06 09:27 | A.OFFVIS_ITS ---
Vital Signs 06/06/24 09:36 Height 5 ft 4 in Weight 132 lb BMI 22.7 BP 138/78 Blood Pressure Location Rt brachial Position Sitting Pulse 86 Pulse Source Pulse Oximeter Pulse Oximetry (%) 97 Oxygen Delivery Method Room Air Intake Visit Reasons: stomach pain Intake Note: ESTABLISHED PATIENT for abd pain, requested appt. Originally supposed to be seen after colo. Chief Complaint; C/O N+V the night prior to this pain, which woke her up in the middle of the night. RUQ, knot and has associated fatigue. No additional N+V, reflux, fecal abn or other concerns since that night. College Or University Faculty Member Required: No Accompanied by: Self / Same As Patient Allergies morphine [MORPHINE] Allergy (Intermediate, Verified 06/06/24 09:27) VOMITING, stomach upset sertraline Allergy (Unknown, Verified 06/06/24 09:27) Unknown HPI HPI stomach pain: Details: LAST VISIT Colon cancer screening Plan What to expect before during and after procedure discussed with patient. Stressed the importance of good bowel prep and clear liquid diet day before procedure. Patient denies any issues with anesthesia in the past. No history of sleep apnea. Not on any anticoagulation medication. Patient reports that she is moving her bowels daily without any issues. Denies melena, hematochezia, unintentional weight loss or ribbon like stools. Patient will follow-up in our office after the procedure. She will call us if she will have any GI concerning symptoms. Patient is agreeable to current plan of care and verbalizes understanding of instructions. She was given the opportunity to ask questions and all questions answered. ? Thank you for allowing me to participate in her care Medications New polyethylene glycol 3350 (Miralax) As directed by gastroenterology department at [facility] 238 grams PO ONCE 238 grams 0RF Z12.11 bisacodyl (Dulcolax (bisacodyl)) take 4 tabs at noon the day before your colonoscopy 20 mg (4 x 5 mg) PO ONCE 1 day 4 tabs 0RF constipation Z12.11 TODAY'S VISIT: Patient is here today for requested visit. Patient reports that over a week ago she developed severe epigastric pain and right upper quadrant pain. Patient states that the pain was excruciating and she had nausea and vomiting, then diarrhea. Patient admits to be eating Sub the night before. Symptoms woke her up from her sleep. Patient reports that she usually does not eat things like that, however patient states that she was in a hurry. Patient also admits to drinking raw fruit and veggie juices. Patient reports that she with drink tall glass of that daily. Patient noticed increased abdominal bloating. Reports abdominal cramping worse than the right upper quadrant. Currently patient states that she no longer is having diarrhea. Her bowels normalized. She considers herself as healthy. The patient usually eats well-balanced meal. Lately has noticed increased bloating and pain. Patient denies melena, hematochezia, unintentional weight loss or ribbon like stools. This is denies any dyspepsia, dysphagia or odynophagia. [facility] Medical History Palpitations Age-related osteoporosis without current pathological fracture Umbilical hernia Hepatitis C Lumbar degenerative disc disease Anxiety Surgical History History of cholecystectomy Status post hysterectomy Hx of colonoscopy Family History Mother No problems noted. Father No problems noted. Brother No problems noted. Brother Substance abuse Brother No problems noted. Sister No problems noted. Sister No problems noted. Sister Breast cancer Sister Leukemia Sister No problems noted. Son No problems noted. Daughter No problems noted. Daughter No problems noted. Social History Household Members: Spouse Housing: House Do you presently have visiting nurse or other home services: No Alcohol intake: former Comment: last drink(11/09/2023) 1.5 months Patient Tobacco Use Status: Former Tobacco user Tobacco use type: Cigarette Years Smoked: QUIT 1999 e-Cigarette/Vaping Use: Never Used Second Hand Smoke Exposure: No Substance Use Type: Marijuana service: No Current occupational status: retired Current occupational exposures/hazards: No Cognitive needs: No Hearing needs: No Vision needs: Yes Review of Systems Const Denies weight gain and Denies weight loss ENT Reports no additional complaints, Denies dysphagia and Denies odynophagia Card Reports no additional complaints Resp Reports no additional complaints GI Reports abdominal pain (Occasional RUQ), Denies belching, Denies melena, Reports bloating, Denies change in bowel habits, Denies dysphagia, Denies excessive flatus, Denies dyspepsia, Reports heartburn, Denies diarrhea, Reports loose stools, Denies nausea, Denies odynophagia and Denies vomiting Reports no additional complaints Musc Reports no additional complaints Neuro Reports no additional complaints Psych Reports no additional complaints Endo Reports no additional complaints Physical Exam Vital Signs: Last Vital Signs Pulse 86 06/06/24 09:36 BP 138/78 06/06/24 09:36 Pulse Ox 97 06/06/24 09:36 Oxygen Delivery Method Room Air 06/06/24 09:36 BMI result Body Mass Index 22.7 Const General: healthy appearing, no acute distress and well developed Nutritional Appearance: well nourished Orientation/consciousness: patient oriented x3 Resp Effort & Inspection: normal respiratory effort, able to speak in complete sentences, no tracheal deviation and symmetric chest movement Auscultation: clear to auscultation bilaterally Cardio Rate: regular rate GI Inspection: Yes normal to inspection and No distended Palpation (GI): Soft to palpation, not firm, nontender and No hepatosplenomegaly present Auscultation: normal bowel sounds General: Yes no CVA tenderness Back/Spine/Pelvis Back: no CVA tenderness Skin General skin exam: elasticity normal, turgor normal and dry skin Neuro General: patient oriented x3 Psych Appearance: grossly normal Mental Status: mental status grossly normal Assessment & Plan Assessment & Plan (1) Abdominal bloating: Code(s): R14.0 - Abdominal distension (gaseous) (2) Diarrhea: Code(s): R19.7 - Diarrhea, unspecified Qualifiers: Diarrhea type: functional diarrhea Qualified Code(s): K59.1 - Functional diarrhea (3) RUQ abdominal pain: Code(s): R10.11 - Right upper quadrant pain Plan Will check transglutaminase to rule out celiac. Patient reports loose stools and she continues to have soft stools. Denies any mucus. Will check fecal calprotectin and CRP. Patient will call our office if she continues to have symptoms or experience any additional GI concerning symptoms. Patient will be scheduled for colonoscopy. Message sent to Surgical schedules above procedure for patient. We will see her after the procedure, sooner on as needed basis. She is agreeable to this plan and verbalizes understanding of instructions. She was given the opportunity to ask questions and all questions answered. Thank you for allowing me to participate in her care Orders: Orders Transglutaminase IgA Today R10.9 - Unspecified abdominal pain Calprotectin, Fecal Today R15.9 - Full incontinence of feces C Reactive Protein Today K58.9 - Irritable bowel syndrome, unspecified Coding Level of Care Code Est Pt Level 4 (26514) Diagnoses Abdominal bloating R14.0 Functional diarrhea K59.1 Diarrhea type: functional diarrhea RUQ abdominal pain R10.11 Time Spent (min) 35 Comment 25 minutes spent with patient and additional 10 minutes spent reviewing her records
[2024-06-06 09:36] VITALS: BP 138/78; PULSE 86; O2SAT 97; BMI 22.7
--- OUTSIDE RECORDS SUMMARY | 2024-06-06 09:45 | XMS_ITS | Clinical Summary ---
Author Organization [employer] Address [address] [place] [address] [address] [place] [address] Care Team Providers Care Lead Generation Marketing Manager Name Role Phone Sarina Braswell ROLL SCALE WORKER Primary Care Provider [phone] Haley Zacarias Unavailable Unavailable Allergies Active Allergy Reactions Criticality Noted Date Comments Morphine Other 07/08/2020 Nausea and vomiting Medications No known medications Active Problems No known active problems Encounters Date Type Department Care Team Description 04/08/2024 4:00 PM EST Office Visit [facility] [address] [place] [address] Makonakeny Deviprasad, BDS 04/08/2024 8:00 AM EST Office Visit [facility] [address] [place] [address] Makonaashleyly, Deviprasad, BDS 04/07/2024 3:00 PM EST Office Visit [facility] [address] [place] [address] Makonahally, Deviprasad, BDS from Last 3 Months Immunizations Name Administration [...] Provider LAB CYTOLOGY ORDERABLES F inal Result [facility] [address] [place] [address] * COLONOSCOPY: DAVID. ANIYA VALVERDE (10/23/2005 12:00 AM EDT) Anatomical Region Laterality Modality Endoscopy 10/23/2005 Narrative 10/23/2005 12:00 AM EDT Refer to Fovea for result details Legacy Procedure: COLONOSCOPY: DAVID. ANIYA VALVERDE Procedure Note Provider, MD Valorie - 06/22/2022 Refer to Fovea for result details Legacy Procedure: COLONOSCOPY: DAVID. ANIYA VALVERDE us Historical Provider ENDOSCOPY PROCEDURE ORDER GEORGE Final Result from Last 3 Months or Most Recently Relevant to Health Maintenance Insurance DENTAL - [facility] PPO DENTAL - [facility]SN FULL (MEDICAID) * Guarantor: Bailee Campuzano Account Type Relation to Patient Date of Phone Billing Address Personal/Family Self [facility] [place] [address] Care Teams Lead Generation Marketing Manager Relationship Specialty Start Date End Date Sarina Braswell FNP [address] [place] [address] PCP - General Family Medicine 01/27/22 Haley Zacarias Health Navigator 10/09/23
== END 2024-06-06 10:25 | disposition home or self-care (01) ==
LOC: HO.HGI 09:23
PROVIDERS: PCP Internal Medicine; Visit Provider Nurse Practitioner Family
DX: R14.0 Abdominal distension (gaseous) (principal); K59.1 Functional diarrhea; R10.11 Right upper quadrant pain
CPT/HCPCS: 99214

== ENCOUNTER 2024-06-06 09:23 | Outpatient (REF) | payer MEDICARE, SELFPAY ==
--- OUTSIDE RECORDS SUMMARY | 2024-06-06 10:56 | XMS_ITS | Clinical Summary ---
Author Organization [employer] Address [address] [place] [address] [address]t [place] [address] Care Team Providers Care Commercial Pest Control Representative Name Role Phone Sarina Braswell MEDICAL ASSISTING PROGRAM DIRECTOR Primary Care Provider [phone] Haley Zacarias Unavailable Unavailable Allergies Active Allergy Reactions Criticality Noted Date Comments Morphine Other 07/08/2020 Nausea and vomiting Medications No known medications Active Problems No known active problems Encounters Date Type Department Care Team Description 04/08/2024 4:00 PM EST Office Visit [facility] [address] [place] [address] Makonakeny Deviprasad, BDS 04/08/2024 8:00 AM EST Office Visit [facility] [address] [place] [address] Makonaashleyly, Deviprasad, BDS 04/07/2024 3:00 PM EST Office Visit [facility] [address] [place] [address] Makonahally, Deviprasad, BDS from Last 3 Months [...] Provider LAB CYTOLOGY ORDERABLES F inal Result [facility] [address] [place] [address] * COLONOSCOPY: DAVID. ANIYA VALVERDE [...] Relevant to Health Maintenance Insurance DENTAL - [facility] PPO DENTAL - [facility] FULL (MEDICAID) * Guarantor: Bailee Campuzano Account Type Relation to Patient Date of Phone Billing Address Personal/Family Self [facility] [place] [address] Care Teams Commercial Pest Control Representative Relationship Specialty Start Date End Date Sarina Braswell FNP [address] [place] [address] PCP - General Family Medicine 01/27/22 Haley Zacarias Health Navigator 10/09/23
[2024-06-06 11:39] LABS: C Reactive Protein < 0.04 mg/dL (< or = 0.50)
[2024-06-09 17:49] LABS: Transglutaminase IgA <1.0 U/mL
== END 2024-06-06 09:24 | disposition home or self-care (01) ==
LOC: HO.LAB 09:23
PROVIDERS: PCP Internal Medicine; Visit Provider Nurse Practitioner Family
DX: R10.9 Unspecified abdominal pain (principal); K58.9 Irritable bowel syndrome, unspecified; R15.9 Full incontinence of feces; R11.2 Nausea with vomiting, unspecified; R14.0 Abdominal distension (gaseous); K59.1 Functional diarrhea
CPT/HCPCS: 36415; 86140; 86364; 99212

== ENCOUNTER 2024-06-11 06:00 | Outpatient (REF) | payer MEDICARE, SELFPAY ==
--- OUTSIDE RECORDS SUMMARY | 2024-06-11 10:28 | XMS_ITS | Clinical Summary ---
Author Organization [employer] Address [address] [place] [address] 7t [place] [address] Care Team Providers Care Production Welding Supervisor Name Role Phone Sarina Braswell CONTRACT ATTORNEY Primary Care Provider [phone] Haley Zacarias Unavailable Unavailable Allergies Active Allergy Reactions Criticality Noted Date Comments Morphine Other 07/08/2020 Nausea and vomiting Medications No known medications Active Problems No known active problems Encounters Date Type Department Care Team Description 04/08/2024 4:00 PM EST Office Visit [facility] [address] [place] [phone] Makonakeny Deviprasad, BDS 04/08/2024 8:00 AM EST Office Visit [facility] [address] [place] [address] Makonaashleyly, Deviprasad, BDS 04/07/2024 3:00 PM EST Office Visit [facility] D[facility] [address] [place] [address] Makonahally, Deviprasad, BDS from Last 3 Months [...] Provider LAB CYTOLOGY ORDERABLES F inal Result [facility] [address] [place] [address] * COLONOSCOPY: DAVID. ANIYA VALVERDE [...] Relevant to Health Maintenance [facility] DENTAL - [facility]SN FULL (MEDICAID) * Guarantor: Bailee Campuzano Account Type Relation to Patient Date of Phone Billing Address Personal/Family Self [facility] [address] [place] [address] Care Teams Production Welding Supervisor Relationship Specialty Start Date End Date Sarina Braswell FNP [address] [place] [address] PCP - General Family Medicine 01/27/22 Haley Zacarias Health Navigator 10/09/23
[2024-06-19 03:59] LABS: Calprotectin, Fecal <5 mcg/g
== END 2024-06-11 06:01 | disposition home or self-care (01) ==
LOC: HO.LNP 06:00
PROVIDERS: Visit Provider Nurse Practitioner Family
DX: R15.9 Full incontinence of feces (principal)
CPT/HCPCS: 83993

== ENCOUNTER 2024-07-23 08:18 | Day surgery (SDC) | payer MEDICARE, SELFPAY ==
--- OUTSIDE RECORDS SUMMARY | 2024-06-20 12:27 | XMS_ITS | Clinical Summary ---
Author Organization [employer] Address [address] [place] [address] 7[address] [place] [address] Care Team Providers Care Convenience Store Manager Name Role Phone Sarina Braswell HOG RINGER Primary Care Provider [phone] Haley Zacarias Unavailable Unavailable Allergies Active Allergy Reactions Criticality Noted Date Comments Morphine Other 07/08/2020 Nausea and vomiting Medications No known medications Active Problems No known active problems Encounters Date Type Department Care Team Description 04/08/2024 4:00 PM EST Office Visit [facility] [address] [place] [id number] Makonakeny Deviprasad, BDS 04/08/2024 8:00 AM EST Office Visit [facility] [address] [place] [id number] Makonaashleyly, Deviprasad, BDS 04/07/2024 3:00 PM EST Office Visit [facility] [address] [place] [id number] Makonahally, Deviprasad, BDS from Last 3 Months [...] Provider LAB CYTOLOGY ORDERABLES F inal Result [facility] [address] [place] [address] * COLONOSCOPY: DAVID. ANIYA VALVERDE [...] Relevant to Health Maintenance Insurance DENTAL - [facility] PPO DENTAL - HSN FULL (MEDICAID) * Guarantor: Bailee Campuzano Account Type Relation to Patient Date of Phone Billing Address Personal/Family Self [facility] [place] [address] Care Teams Convenience Store Manager Relationship Specialty Start Date End Date Sarina Braswell FNP [address] [place] [address] PCP - General Family Medicine 01/27/22 Haley Zacarias Health Navigator 10/09/23
[2024-07-18 14:23] VITALS: BMI 22.7
--- NOTE | 2024-07-22 11:54 | P.CONAN_ITS ---
HPI - Anesthesia Eval Consult details Narrative: 74yo F for Colonoscopy Hx SVT 2022, no recurrence and did not take beta dea PMF Active Problems Active Problems: All Active Problems Colon cancer screening (Acute) Low back pain radiating to right leg (Acute) SVT (supraventricular tachycardia) (Acute) Breast cancer screening by mammogram (Acute) Impaired fasting glucose (Acute) Annual physical exam (Acute) Umbilical hernia (Acute) Past Medical History Medical History (Updated 07/18/24 @ 14:18 by Elida Portillo RN) SVT (supraventricular tachycardia) Palpitations Age-related osteoporosis without current pathological fracture Umbilical hernia Hepatitis C Lumbar degenerative disc disease Anxiety Family History Family History Mother No problems noted. Father No problems noted. Brother No problems noted. Brother Substance abuse Brother No problems noted. Sister No problems noted. Sister No problems noted. Sister Breast cancer Sister Leukemia Sister No problems noted. Son No problems noted. Daughter No problems noted. Daughter No problems noted. Surgical History Surgical History History of cholecystectomy Status post hysterectomy Hx of colonoscopy Social History Social History Household Members: Spouse Housing: House Do you presently have visiting nurse or other home services: No Alcohol intake: former Comment: last drink(11/09/2023) 1.5 months Patient Tobacco Use Status: Former Tobacco user Tobacco use type: Cigarette Years Smoked: QUIT 1999 e-Cigarette/Vaping Use: Never Used Second Hand Smoke Exposure: No Substance Use Type: Marijuana service: No Current occupational status: retired Current occupational exposures/hazards: No Cognitive needs: No Hearing needs: No Vision needs: Yes Meds Allergies Allergy/AdvReac Type Severity Reaction Status Date / Time morphine [MORPHINE] Allergy Intermediate VOMITING, Verified 06/06/24 09: stomach upset sertraline Allergy Unknown Unknown Verified 06/06/24 09: Exam Height,Weight and Vital Signs: Height 5 ft 4 in Weight 59.874 kg Narrative Narrative: EKG 2023 Vent. Rate : 048 BPM Atrial Rate : 048 BPM P-R Int : 202 ms QRS Dur : 082 ms QT Int : 478 ms P-R-T Axes : 074 -31 056 degrees QTc Int : 427 ms Sinus bradycardia Left axis deviation Abnormal ECG When compared with ECG of 05-JUL-2020 12:50, No significant change was found Holter 2022 * Total monitoring time 3 days. * Underlying rhythm is sinus with first-degree block. Average ventricular rate 73/Min. Range 43 to 132/Min. * Episode of narrow complex tachycardia; regular; maximum rate 184/Min. Appears to be SVT. Could also be atrial tachycardia. Duration over 2 hours. * Rare PACs and PVCs with low burden. * Nighttime pause up to 2.9 seconds, 1 episode. Otherwise, no significant blocks. * Palpitations in diary correlates with SVT. Assessment and Plan Assessment Anesthesia Assessment: Chart Reviewed
--- NOTE | 2024-07-23 08:53 | HO.ANESPROP2 ---
[facility] Active Problems Active Problems: All Active Problems Colon cancer screening (Acute) Low back pain radiating to right leg (Acute) SVT (supraventricular tachycardia) (Acute) Breast cancer screening by mammogram (Acute) Impaired fasting glucose (Acute) Annual physical exam (Acute) Umbilical hernia (Acute) Past Medical History Medical History SVT (supraventricular tachycardia) Palpitations Age-related osteoporosis without current pathological fracture Umbilical hernia Hepatitis C Lumbar degenerative disc disease Anxiety Functional capacity: independent ambulation Patient : No Family History Family History Mother No problems noted. Father No problems noted. Brother No problems noted. Brother Substance abuse Brother No problems noted. Sister No problems noted. Sister No problems noted. Sister Breast cancer Sister Leukemia Sister No problems noted. Son No problems noted. Daughter No problems noted. Daughter No problems noted. Family history of problems with anesthesia: No Surgical History Surgical History History of cholecystectomy Status post hysterectomy Hx of colonoscopy History of Problems with Anesthesia: No Social History Social History Household Members: Spouse Housing: House Are you a primary care assistant to a significant other at home: No Do you presently have visiting nurse or other home services: No Alcohol intake: former Comment: last drink(11/09/2023) 1.5 months Patient Tobacco Use Status: Former Tobacco user Tobacco use type: Cigarette Years Smoked: QUIT 1999 e-Cigarette/Vaping Use: Never Used Second Hand Smoke Exposure: No Substance Use Type: Marijuana service: No Current occupational status: retired Current occupational exposures/hazards: No Cognitive needs: No Hearing needs: No Vision needs: Yes Meds Allergies Allergy/AdvReac Type Severity Reaction Status Date / Time morphine [MORPHINE] Allergy Intermediate VOMITING, Verified 06/06/24 09:27 stomach upset sertraline Allergy Unknown Unknown Verified 06/06/24 09:27 Active Medications: Current Medications Lactated Ringer's (Lr) 1,000 mls @ 100 mls/hr IVCONT .Q10H FRANCINE Exam Height,Weight and Vital Signs: Height 5 ft 4 in Weight 59.874 kg Airway TM Dist: >3cm Neck ROM: Full Heart: RRR Lungs: CTA Assessment and Plan Assessment Anesthesia Assessment: Anesthesia Plan Discussed Final Anesthetic Review Family History of Problems with Anesthesia: No History of Problems with Anesthesia: No NPO: Yes ASA Class: II Final Preanesthetic Review: Meds/Allgs Chart Reviewed, Consent Obtained/Reviewed and Anes Risks/Benef Reviewed Patient Risk: Low Procedure Risk: Low Anesthetic Plan Anesthetic Plan: MAC: Disposition: Standard PACU
[2024-07-23] MEDS: Lactated Ringers 1,000 ML 100 ML IVCONT (08:58)
[2024-07-23 08:59] VITALS: BP 141/74; PULSE 71; RESP 18; TEMP 36.7; O2SAT 96
--- NOTE | 2024-07-23 09:08 | MHC.SHP ---
Pre-Procedural Eval Section A - 24 Hr Update-Section A only Date of Service: 07/23/24 Section B - Complete if H&P > 30 days Chief Complaint: Abdominal distension (gaseous),diarrhea,pain Relevant Family History (Specify if Yes): No Relevant Social History: Other (specify) (thc use ) Present Medications: see Short Stay Collaborative assessment Medical History: Significant History (SVT (supraventricular tachycardia) Palpitations Age-related osteoporosis without current pathological fracture Umbilical hernia Hepatitis C Lumbar degenerative disc disease Anxiety) History of Previous Operations: Relevant previous surgery/procedure and date(s) (History of cholecystectomy Status post hysterectomy Hx of colonoscopy) Allergies: Allergies Allergy/AdvReac Type Severity Reaction Status Date / Time morphine [MORPHINE] Allergy Intermediate VOMITING, Verified 06/06/24 09:27 stomach upset sertraline Allergy Unknown Unknown Verified 06/06/24 09:27 Review of Systems Sugical H&P ROS: Negative: Constitution, Cardiovascular, Respiratory, Neurological, Psychiatric, Hem-Onc, Allergic/Immunologic, Gastrointestinal, Genitourinary, Musculoskeletal, Integumentary, Endocrine and Eyes/Ears/Nose/Throat Exam Surgical H&P Exam: Normal: HEENT, Normal: Heart, Normal: Lungs, Normal: Extremities, Normal: Abdomen, Normal: Skin and Normal: Neurological Plan Diagnosis/Plan: Unchanged I have reviewed the history and physical and performed a pertinent physical examination on my patient. No changes have occurred unless specified. Time Spent With Patient Time: Total time managing care of this patient today ____ minutes.
--- NOTE | 2024-07-23 09:34 | HO.OPN-COLON ---
Colonoscopy Operative Note Operative Note Date of Service: 07/23/24 Narrative: Operative Information Procedure Description: Colonoscopy Indication: screening Anesthesia: MAC COLONOSCOPY Instrument: Olympus variable stiffness pediatric scope 190L Colonoscopy Monitoring: Vital signs and clinical assessment, continuous EKG monitoring, Pulse oximetry, Carbon Dioxide monitoring and blood pressure monitoring were done throughout the procedure. Colon withdrawal time was 6 minutes. Procedure: The patient was placed in the left lateral decubitis position and pre-procedure medications were administered. After a digital rectal examination of the ano-rectum, the video colonoscope was inserted into the rectum and advanced through the colon to the cecum/TI. The colonoscope was slowly withdrawn in a retrograde panoramic fashion and the colon mucosa was carefully examined including a retroflexed view of the rectum. Findings and interventions are described below. Procedure Difficulty: easy Findings: Terminal Ileum-normal Cecum:normal right sided retroflexion- normal Ascending Colon: normal Transverse Colon -normal Descending Colon:normal Sigmoid Colon: midl diverticulosis Rectum: Retroflexion with small internal hemorrhoids seen, grade I Anorectum - normal Intervention: none Colon preparation: [place] Bowel Preparation Scale Right colon; 3 Transverse colon: 3 Left colon; 3 (0 = Unprepared colon segment with mucosa not seen due to solid stool that cannot be cleared. 1 = Portion of mucosa of the colon segment seen, but other areas of the colon segment not well seen due to staining, residual stool and/or opaque liquid. 2 = Minor amount of residual staining, small fragments of stool and/or opaque liquid, but mucosa of colon segment seen well. 3 = Entire mucosa of colon segment seen well with no residual staining, small fragments of stool or opaque liquid) Impression and Post Procedure Diagnosis: diverticulosis internal hemorrhoids Plan: High fiber diet leaflet Avoid straining at stool, epsom salts and sitz bath, anusol supps or cream Repeat Colonoscopy in 10 years or earlier if clinically indicated Above findings were reviewed with the patient and relevant handouts were provided if indicated.
--- NOTE | 2024-07-23 09:41 | HO.ANESPROP2 ---
[facility] Active Problems Active Problems: All Active Problems (Updated 07/18/24 @ 14:18 by Elida Portillo RN) Colon cancer screening (Acute) Low back pain radiating to right leg (Acute) SVT (supraventricular tachycardia) (Acute) Breast cancer screening by mammogram (Acute) Impaired fasting glucose (Acute) Annual physical exam (Acute) Umbilical hernia (Acute) Past Medical History Medical History SVT (supraventricular tachycardia) Palpitations Age-related osteoporosis without current pathological fracture Umbilical hernia Hepatitis C Lumbar degenerative disc disease Anxiety Functional capacity: independent ambulation Family History Family History Mother No problems noted. Father No problems noted. Brother No problems noted. Brother Substance abuse Brother No problems noted. Sister No problems noted. Sister No problems noted. Sister Breast cancer Sister Leukemia Sister No problems noted. Son No problems noted. Daughter No problems noted. Daughter No problems noted. Family history of problems with anesthesia: No Surgical History Surgical History History of cholecystectomy Status post hysterectomy Hx of colonoscopy History of Problems with Anesthesia: No Social History Social History Household Members: Spouse Housing: House Are you a primary field care manager to a significant other at home: No Do you presently have visiting nurse or other home services: No Alcohol intake: former Comment: last drink(11/09/2023) 1.5 months Patient Tobacco Use Status: Former Tobacco user Tobacco use type: Cigarette Years Smoked: QUIT 1999 e-Cigarette/Vaping Use: Never Used Second Hand Smoke Exposure: No Substance Use Type: Marijuana service: No Current occupational status: retired Current occupational exposures/hazards: No Cognitive needs: No Hearing needs: No Vision needs: Yes Meds Allergies Allergy/AdvReac Type Severity Reaction Status Date / Time morphine [MORPHINE] Allergy Intermediate VOMITING, Verified 06/06/24 09:27 stomach upset sertraline Allergy Unknown Unknown Verified 06/06/24 09:27 Active Medications: Current Medications Lactated Ringer's (Lr) 1,000 mls @ 100 mls/hr IVCONT .Q10H FRANCINE Last Admin: 07/23/24 08:58 Dose: 100 mls/hr Naloxone HCl (Naloxone Hcl 0.4 Mg/Ml Vial) 0.04 mg IVPUSH Q5M PRN PRN Reason: Excessive sedation or RR < 8 Exam Height,Weight and Vital Signs: Height 5 ft 4 in Weight 59.874 kg Last Vital Signs Temp 98.1 F 07/23/24 08:59 Pulse 71 07/23/24 08:59 Resp 18 07/23/24 08:59 BP 141/74 H 07/23/24 08:59 Pulse Ox 96 07/23/24 08:59 O2 Del Method Room Air 07/23/24 08:59 Assessment and Plan Final Anesthetic Review Family History of Problems with Anesthesia: No History of Problems with Anesthesia: No
[2024-07-23 09:43] VITALS: BP 109/65; PULSE 68; RESP 16; TEMP 36.5; O2SAT 97
[2024-07-23 09:58] VITALS: BP 133/75; PULSE 63; RESP 16; TEMP 36.5; O2SAT 98
--- NOTE | 2024-07-23 11:38 | HO.POSTANES ---
Post Anesthesia Evaluation Post Anesthesia Evaluation Date of Service: 07/23/24 Vital Signs: Vital Signs Temp Pulse Resp BP Pulse Ox O2 Del Method 07/23/24 09:58 97.7 F 63 16 133/75 98 Room Air 07/23/24 09:43 97.7 F 68 16 109/65 97 07/23/24 08:59 98.1 F 71 18 141/74 H 96 Room Air Anesthesia: Monitored Mental Status: Awake Pain Control: Satisfactory Nausea/Vomiting: None Hydration: Adequate Anesthesia-Related Issues: No Anes. Related Issues
== END 2024-07-23 10:35 | disposition home or self-care (01) ==
PROVIDERS: PCP Internal Medicine; Visit Provider Internal Medicine Gastroenterology
PROC: 0DJD8ZZ Inspection of Lower Intestinal Tract, Via Natural or Artificial Opening Endoscopic (ICD-10-PCS; CPT 45378; principal; 2024-07-23 10:00)
DX: Z12.11 Encounter for screening for malignant neoplasm of colon (principal); K57.30 Diverticulosis of large intestine without perforation or abscess without bleeding; K64.0 First degree hemorrhoids; R14.0 Abdominal distension (gaseous); I47.10 Supraventricular tachycardia, unspecified; B19.20 Unspecified viral hepatitis C without hepatic coma; Z87.891 Personal history of nicotine dependence
CPT/HCPCS: G0121; J1805

== ENCOUNTER → 2024-07-23 08:18 | Outpatient (BNV) | payer MEDICARE, SELFPAY | PROVIDERS: PCP Internal Medicine; Visit Provider Internal Medicine Gastroenterology | DX: Z12.11 Encounter for screening for malignant neoplasm of colon (principal); K57.30 Diverticulosis of large intestine without perforation or abscess without bleeding; K64.0 First degree hemorrhoids | CPT/HCPCS: G0121 ==

== ENCOUNTER 2024-09-02 14:53 | Outpatient (AMB) | payer MEDICARE, SELFPAY ==
--- NOTE | 2024-09-02 14:54 | A.OFFVIS_ITS ---
Vital Signs 09/02/24 14:59 Height 5 ft 4 in Weight 122 lb BMI 20.9 BP 142/78 H Blood Pressure Location Rt brachial Position Sitting Pulse 64 Pulse Source Pulse Oximeter Pulse Oximetry (%) 98 Oxygen Delivery Method Room Air Intake Visit Reasons: Abd pain mgmt. S/P [place] Intake Note: ESTABLISHED PATIENT for abd pain, requested appt. S/[facility] [place] Chief Complaint; Pt denies any GI sx or concerns at this time. Pt had previously been experiencing abd pain but states that this has resolved since she scheduled the appt. 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 S/[facility] [place]: Details: LAST VISIT: Abdominal bloating Diarrhea RUQ abdominal pain Plan Will check transglutaminase to rule out celiac. Patient reports loose stools and she continues to have soft stools. Denies any mucus. Will check fecal calprotectin and CRP. Patient will call our office if she continues to have symptoms or experience any additional GI concerning symptoms. Patient will be scheduled for colonoscopy. Message sent to Surgical schedules above procedure for patient. We will see her after the procedure, sooner on as needed basis. She is agreeable to this plan and verbalizes understanding of instructions. She was given the opportunity to ask questions and all questions answered. ? Thank you for allowing me to participate in her care Orders Transglutaminase IgA Today R10.9 Calprotectin, Fecal Today R15.9 C Reactive Protein Today K58.9 COLONOSCOPY: Findings: Terminal Ileum-normal Cecum:normal right sided retroflexion- normal Ascending Colon: normal Transverse Colon -normal Descending Colon:normal Sigmoid Colon: midl diverticulosis Rectum: Retroflexion with small internal hemorrhoids seen, grade I Anorectum - normal Intervention: none Colon preparation: [place] Bowel Preparation Scale Right colon; 3 Transverse colon: 3 Left colon; 3 (0 = Unprepared colon segment with mucosa not seen due to solid stool that cannot be cleared. 1 = Portion of mucosa of the colon segment seen, but other areas of the colon segment not well seen due to staining, residual stool and/or opaque liquid. 2 = Minor amount of residual staining, small fragments of stool and/or opaque liquid, but mucosa of colon segment seen well. 3 = Entire mucosa of colon segment seen well with no residual staining, small fragments of stool or opaque liquid) Impression and Post Procedure Diagnosis: diverticulosis internal hemorrhoids Plan: High fiber diet leaflet Avoid straining at stool, epsom salts and sitz bath, anusol supps or cream Repeat Colonoscopy in 10 years or earlier if clinically indicated TODAY'S VISIT Patient is here today for follow-up. Patient just had colonoscopy that was normal. Mild diverticulosis to sigmoid colon otherwise no polyps. Colonoscopy in 10 years if patient continues in good health or sooner if clinically indicated. Patient reports that since last visit and our discussion about changing her diet she has not had any abdominal pain or back pain. Patient reports that she stopped doing her using from certain foods like apples and states that she is no longer experiencing pain or bloating. After colonoscopy she was doing well. Right quadrant pain has not come back. Patient feels like she is emptying her bowels better now. No diarrhea or constipation. PFSH Medical History SVT (supraventricular tachycardia) Palpitations Age-related osteoporosis without current pathological fracture Umbilical hernia Hepatitis C Lumbar degenerative disc disease Anxiety Surgical History History of cholecystectomy Status post hysterectomy Hx of colonoscopy Family History Mother No problems noted. Father No problems noted. Brother No problems noted. Brother Substance abuse Brother No problems noted. Sister No problems noted. Sister No problems noted. Sister Breast cancer Sister Leukemia Sister No problems noted. Son No problems noted. Daughter No problems noted. Daughter No problems noted. Social History Household Members: Spouse Housing: House Are you a primary director critical care to a significant other at home: No Do you presently have visiting nurse or other home services: No Alcohol intake: former Comment: last drink(11/09/2023) 1.5 months Patient Tobacco Use Status: Former Tobacco user Tobacco use type: Cigarette Years Smoked: QUIT 1999 e-Cigarette/Vaping Use: Never Used Second Hand Smoke Exposure: No Substance Use Type: Marijuana service: No Current occupational status: retired Current occupational exposures/hazards: No Cognitive needs: No Hearing needs: No Vision needs: Yes Review of Systems Const Denies weight gain and Denies weight loss ENT Reports no additional complaints, Denies dysphagia and Denies odynophagia Card Reports no additional complaints Resp Reports no additional complaints GI Denies abdominal pain, Denies belching, Denies melena, Denies bloating, Denies change in bowel habits, Denies dysphagia, Denies excessive flatus, Denies dyspepsia, Denies heartburn, Denies diarrhea, Denies loose stools, Denies nausea, Denies odynophagia and Denies vomiting Musc Reports no additional complaints Neuro Reports no additional complaints Psych Reports no additional complaints Endo Reports no additional complaints Physical Exam Vital Signs: Last Vital Signs Pulse 64 09/02/24 14:59 BP 142/78 H 09/02/24 14:59 Pulse Ox 98 09/02/24 14:59 Oxygen Delivery Method Room Air 09/02/24 14:59 BMI result Body Mass Index 20.9 Const General: healthy appearing, no acute distress and well developed Nutritional Appearance: well nourished Orientation/consciousness: patient oriented x3 Resp Effort & Inspection: normal respiratory effort, able to speak in complete sentences, no tracheal deviation and symmetric chest movement Auscultation: clear to auscultation bilaterally Cardio Rate: regular rate GI Inspection: Yes normal to inspection and No distended Palpation (GI): Soft to palpation, not firm, nontender and No hepatosplenomegaly present Auscultation: normal bowel sounds General: Yes no CVA tenderness Back/Spine/Pelvis Back: no CVA tenderness Skin General skin exam: elasticity normal, turgor normal and dry skin Neuro General: patient oriented x3 Psych Appearance: grossly normal Mental Status: mental status grossly normal Results Reviewed Results Reviewed: Laboratory Tests 06/06/24 06/11/24 10:51 06:00 C-Reactive Protein < 0.04 Stool Calprotectin <5 Tiss Transglutamin IgA <1.0 Assessment & Plan Assessment & Plan (1) Status post colonoscopy: Code(s): Z98.890 - Other specified postprocedural states Plan Patient will continue low FODMAP diet. Changing her diet helped her with her symptoms. Follow-up for colonoscopy in 10 years, sooner if clinically necessary. Patient will follow-up in our office as needed. She is agreeable to this plan and verbalizes understanding of instructions. She was given the opportunity to ask questions and all questions answered. Thank you for allowing me to participate in her care Coding Level of Care Code Est Pt Level 3 (75650) Diagnoses Status post colonoscopy Z98.890 Time Spent (min) 25 Comment 15 minutes spent with patient and additional 10 minutes spent reviewing her records
[2024-09-02 14:59] VITALS: BP 142/78; PULSE 64; O2SAT 98; BMI 20.9
--- OUTSIDE RECORDS SUMMARY | 2024-09-02 15:37 | XMS_ITS | Clinical Summary ---
Author Organization [employer] Address [address] [place] [address] [address] [place] [address] Care Team Providers Care Medical Underwriter Name Role Phone Sarina Braswell ABATEMENT WORKER Primary Care Provider [phone] Haley Zacarias Unavailable Unavailable Allergies Active Allergy Reactions Criticality Noted Date Comments Morphine Other 07/08/2020 Nausea and vomiting Medications No known medications Active Problems No known active problems Immunizations Immunization Administration Dates Next Due Pneumococcal Polysaccharide PPSV23 [...] season) 2023 07/12/2020, 06/21/2020 Influenza Vaccine (#1) 2024 Tobacco Screening 04/08/2025 04/08/2024 RSV Patients and [...] patient's age to complete this topic Meningococcal B Vaccine Aged Out No l onger eligible based on patient's age to complete [...] Procedure Name Priority Date/Time Associated Diagnosis Comments COMPREHENSIVE ORAL EVALUATION - NEW OR ESTABLISHED PATIENT Routine 05/30/2022 10:00 AM EDT Periodontosis HM MAMMOGRAPHY Routine 12/22/2011 THIN PREP PAP, WITH HPV Routine 08/13/2009 12:00 AM EDT COLONOSCOPY Routine 10/23/2005 12:00 AM EDT from Last 3 Months or Most Recently Relevant to Health Maintenance Results * Mammography (12/22/2011) HM Mammogram BI-RADS 1 Negative Anatomical Region Laterality Modality Other Historical Provider HEALTH MAINTENANCE Final Result * THIN PREP PAP, WITH HPV (08/13/2009 12:00 AM EDT) Historical Provider LAB CYTOLOGY ORDERABLES F inal Result [facility] [address] [place] [address] * COLONOSCOPY: DAVID. ANIYA VALVERDE (10/23/2005 12:00 AM EDT) Anatomical Region Laterality Modality Endoscopy 10/23/2005 Narrative 10/23/2005 12:00 AM EDT Refer to Fovea for result details Legacy Procedure: COLONOSCOPY: DAVID. ANIYA VALVERDE Procedure Note ProviderValorie MD - 06/22/2022 Refer to Fovea for result details Legacy Procedure: COLONOSCOPY: DAVID. ANIYA VALVERDE Historical Provider ENDOSCOPY PROCEDURE ORDER GEORGE Final Result from Last 3 Months or Most Recently Relevant to Health Maintenance [place] [address] DENTAL - [facility] PPO DENTAL - HSN FULL (MEDICAID) * Guarantor: Bailee Campuzano Account Type Relation to Patient Date of Phone Billing Address Personal/Family Self [address] [place] Care Teams Medical Underwriter Relationship Specialty Start Date End Date Sarina Braswell FNP [address] [place] [address] PCP - General Family Medicine 01/27/22 Haley Zacarias Health Navigator 10/09/23
== END 2024-09-02 15:58 | disposition home or self-care (01) ==
PROVIDERS: PCP Internal Medicine; Visit Provider Nurse Practitioner Family
DX: Z98.890 Other specified postprocedural states (principal)
CPT/HCPCS: 99213

== ENCOUNTER → 2024-09-02 14:53 | Outpatient (BNVA) | payer MEDICARE, SELFPAY | PROVIDERS: PCP Internal Medicine; Visit Provider Nurse Practitioner Family | DX: R15.9 Full incontinence of feces (principal); R10.9 Unspecified abdominal pain; K58.9 Irritable bowel syndrome, unspecified; Z98.890 Other specified postprocedural states | CPT/HCPCS: 99212 ==

== ENCOUNTER 2024-11-25 08:54 | Outpatient (AMB) | payer MEDICARE, SELFPAY ==
--- NOTE | 2024-11-25 08:56 | A.OFFPC_ITS ---
Vital Signs 11/25/24 08:57 Height 5 ft 4 in Weight 124 lb 2 oz BMI 21.3 BP 118/72 Blood Pressure Location Lt brachial Position Sitting Pulse 66 Pulse Source Pulse Oximeter Temp 97.1 F Temp Source Temporal Artery Scan Pulse Oximetry (%) 97 Oxygen Delivery Method Room Air Intake Visit Reasons: cough Allergies morphine (MORPHINE) Allergy (Intermediate, Verified 11/25/24 08:56) VOMITING, stomach upset sertraline Allergy (Unknown, Verified 11/25/24 08:56) Unknown Tobacco use date assessed: 11/25/24 Fall risk assessment: No Falls in past year Last assessed Fall Risk: 11/25/24 Dental Screening Dental Screen Date: 11/25/24 Did you have a dental visit in the last 12 months?: No Did you have a dental problem in the last 6 months where you did not have access to dental care?: No Was dental information given to patient?: Patient has dentist HPI cough HPI Details last week cough . diarrhea and better now, PFSH Medical History SVT (supraventricular tachycardia) Palpitations Age-related osteoporosis without current pathological fracture Umbilical hernia Hepatitis C Lumbar degenerative disc disease Anxiety Surgical History History of cholecystectomy Status post hysterectomy Hx of colonoscopy Family History Mother No problems noted. Father No problems noted. Brother No problems noted. Brother Substance abuse Brother No problems noted. Sister No problems noted. Sister No problems noted. Sister Breast cancer Sister Leukemia Sister No problems noted. Son No problems noted. Daughter No problems noted. Daughter No problems noted. Social History Household Members: Spouse Housing: House Are you a primary customer care specialist to a significant other at home: No Do you presently have visiting nurse or other home services: No Alcohol intake: former Comment: last drink(11/09/2023) 1.5 months Patient Tobacco Use Status: Former Tobacco user Tobacco use type: Cigarette Years Smoked: QUIT 1999 e-Cigarette/Vaping Use: Never Used Second Hand Smoke Exposure: No Substance Use Type: Marijuana service: No Current occupational status: retired Current occupational exposures/hazards: No Cognitive needs: No Hearing needs: No Vision needs: Yes Questionnaire PHQ-9 Over the last 2 weeks, how often have you been bothered by any of the following problems? 1. Little interest or pleasure in doing things: not at all 2. Feeling down, depressed, or hopeless: not at all 3. Trouble falling or staying asleep, or sleeping too much: not at all 4. Feeling tired or having little energy: not at all 5. Poor appetite or overeating: not at all 6. Feeling bad about yourself - or that you are a failure or have let yourself or your family down: not at all 7. Trouble concentrating on things, such as reading the newspaper or watching television: not at all 8. Moving or speaking so slowly that other people could have noticed. Or the opposite - being so fidgety or restless that you have been moving around a lot more than usual: not at all 9. Thoughts that you would be better off or of hurting yourself in some way: not at all Total score: 0 Source: Developed by Drs. Taye Bustillo, Naomi Whitaker, Conrado Garcia and colleagues, with an educational leonel from [employer]. Thrive Questionnaire Date Thrive assessed: 11/25/24 I am a: Patient What is your living situation today?: I have a steady place to live Within the past 12 months, did the food you bought not last and you didn't have the money to get more?: Never true Within the past 12 months, did you worry whether your food would run out before you got money to buy more?: Never true Do you have trouble paying for medicines?: No Do you have trouble getting transportation to medical appointments?: No Do you have trouble paying your heating and electricity bill?: Yes Do you have trouble taking care of your child, family member or friend?: No Do you have trouble with day-to-day activities such as bathing, preparing meals, shopping, managing finances, etc.?: No Are you currently unemployed and looking for a job?: No Are you interested in more education?: No Please select the resources that you would like help with: None Currently or been in a relationship where the following occur: No concerns reported THRIVE Score: 1 AUDIT C Alcohol Use Questionnaire (AUDIT-C) 1. How often do you have a drink containing alcohol?: 2-4 times a month 2. How many drinks containing alcohol do you have on a typical day when you are drinking?: 1 or 2 3. How often do you have six or more drinks on one occasion?: Never Total Score: 2 TAMICA-7 AMB Questionnaire TAMICA-7 Date TAMICA - 7 assessed: 11/25/24 Feeling nervous, anxious, or on edge: 0 = Not at all Not being able to stop or control worryin = Not at all Worrying too much about different things: 0 = Not at all Trouble relaxin = Not at all Being so restless that it is hard to sit still: 0 = Not at all Becoming easily annoyed or irritable: 0 = Not at all Feeling afraid as if something awful might happen: 0 = Not at all Total TAMICA-7 score (0-4 normal; 5-9 mild; 10-14 moderate; 15-21 severe): 0 Source: Developed by Drs. Taye Bustillo, Naomi Whitaker, Conrado Garcia and colleagues, with an educational leonel from [employer]. Physical exam (Primary Care) Vital Signs: Last Vital Signs Temp 97.1 F 11/25/24 08:57 Pulse 66 11/25/24 08:57 BP 118/72 11/25/24 08:57 Pulse Ox 97 11/25/24 08:57 Oxygen Delivery Method Room Air 11/25/24 08:57 BMI result Body Mass Index 21.3 Tobacco/Smoking Status: Tobacco use Status Tobacco use date assessed 11/25/24 11/25/24 08:56 Patient Tobacco Use Status Former Tobacco user 11/25/24 08:56 Tobacco use type Cigarette 11/25/24 08:56 e-Cigarette/Vaping Use Never Used 11/25/24 08:56 PHQ-9: PHQ-9 Score PHQ-9: Total score 0 11/25/24 09:20 Thrive Assessment: Date of Thrive Assessment Date Thrive assessed 11/25/24 11/25/24 08:56 Currently or been in a relationship where the following occur: No concerns reported Const General: alert; No acute distress Eyes Conjunctivae: conjunctivae normal Resp Auscultation: clear to auscultation bilaterally Cardio Rate: regular rate Rhythm: regular rhythm GI Inspection: Yes normal to inspection Extrem General: Yes normal to inspection and No edema Immunizations Tenivac (PF) 5 Lf unit-2 Lf unit/0.5 mL intramuscular syringe Performing Provider: Nemesio Branham MD Performing Location: [facility] Administered by: Jewell Jones CMA on 11/25/24 09:43 Dose Route Admin Location Dispensed Lot Number Expiration Date 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 Osteopenia M85.80 Assessment & Plan Assessment & Plan (1) Impaired fasting glucose: Code(s): R73.01 - Impaired fasting glucose Category: Medical Plan: Decrease the amount of carbohydrate intake, pasta, bread, rice and potatoes are all sugar and that is aside from all the sweet stuff, remember that fruits are good but they are Sweet also. Advised repeat blood work (2) SVT (supraventricular tachycardia): Comment: August 2022 Code(s): I47.1 - Supraventricular tachycardia Category: Medical Plan: Stable (3) Breast cancer screening by mammogram: Code(s): Z12.31 - Encounter for screening mammogram for malignant neoplasm of breast Category: Medical Plan: Discussed about repeating mammogram (4) Osteopenia: Code(s): M85.80 - Other specified disorders of bone density and structure, unspecified site Category: Medical Plan: Discussed about calcium and vitamin-D. Discussed also about options for the bones. Advised repeat bone density Plan History of Present Illness The patient is a 74-year-old female presenting for an acute problem and preventative care measures. She has a history of impaired glucose tolerance and supraventricular tachycardia (SVT). Her blood sugar levels were noted to be elevated in April 2023, and she has not had a fasting blood work done recently. The patient underwent a colonoscopy in June 2024, which was normal, and a bone density scan in August 2022, which indicated osteopenia. She is due for a mammogram and has been advised to repeat her bone density scan. Recently, the patient experienced symptoms resembling the flu, including nausea, vomiting, and diarrhea, which have since resolved. She continues to have a cough with phlegm, likely due to bronchitis, but denies any fever or shortness of breath. Health Maintenance - Colonoscopy performed in June 2024, results normal - Bone density scan in August 2022, indicated osteopenia - Mammogram due, last performed in 2022 - Discussed calcium and vitamin D supplementation for bone health - Advised to repeat blood work, including fasting blood sugar and cholesterol - Discussed shingles vaccination, recommended Shingrix - Tetanus vaccine administered, last done in 2013 Social History - Reports no current medications or supplements - Denies smoking or alcohol use Review of Systems - General: Reports recent flu-like symptoms, including nausea, vomiting, and diarrhea, now resolved - Respiratory: Reports persistent cough with phlegm, denies dyspnea or fever - Gastrointestinal: Denies current nausea, vomiting, or diarrhea - Genitourinary: Denies dysuria or urinary frequency Physical Exam - Respiratory: Auscultation performed, no pneumonia detected, persistent congestion noted - Throat: Examination performed, no abnormalities noted Results - Labs: Blood count normal, no anemia, electrolytes with hypokalemia, elevated blood sugar noted in April 2023 - Tests: Colonoscopy in June 2024 normal, bone density scan in August 2022 indicated osteopenia Plan Patient was informed and verbally consented to the use of an ambient scribe for clinic note documentation during this visit. 1. Impaired Glucose Tolerance The patient has a history of impaired glucose tolerance with elevated blood sugar levels noted in April 2023. A fasting blood work is recommended to better assess her glycemic control. Lifestyle modifications, including diet and exercise, were discussed to manage her glucose levels. 2. Supraventricular Tachycardia (Svt) The patient has a history of supraventricular tachycardia (SVT), but no acute episodes were reported during this visit. Continued monitoring and follow-up are advised. 3. Osteopenia The patient was diagnosed with osteopenia following a bone density scan in August 2022. Calcium and vitamin D supplementation were discussed to support bone health. A repeat bone density scan is advised to monitor progression. 4. Bronchitis The patient reports a persistent cough with phlegm, likely due to bronchitis. No fever or dyspnea was reported, and symptomatic treatment was advised. 5. Preventative Care Preventative care measures include a colonoscopy performed in June 2024, which was normal, and a bone density scan in August 2022, indicating osteopenia. The patient is due for a mammogram and has been advised to repeat her bone density scan. Vaccinations discussed include the shingles vaccine, with a recommendation for Shingrix, and the tetanus vaccine, which was administered during this visit. Discussion Notes During the visit, we discussed the importance of managing impaired glucose tolerance through lifestyle modifications and the need for fasting blood work to assess glycemic control. We also reviewed the patient's history of SVT and advised continued monitoring. For osteopenia, calcium and vitamin D supplementation were recommended, and a repeat bone density scan was advised. The patient was informed about the benefits of the Shingrix vaccine for shingles prevention and received a tetanus booster. Patient Instructions - Schedule and complete fasting blood work for glucose and cholesterol. - Maintain a healthy diet and regular exercise to manage blood sugar levels. - Follow up for a repeat bone density scan and mammogram. - Consider getting the Shingrix vaccine for shingles at a pharmacy. - Drink plenty of water and stay active. Orders: Orders Comprehensive Met. Panel Today R73.01 - Impaired fasting glucose Free T4 (Free Thyroxine) Today R73.01 - Impaired fasting glucose Thyroid Stimulating Hormone Today R73.01 - Impaired fasting glucose Vitamin B12 and Folate Today R73.01 - Impaired fasting glucose Complete Blood Count Auto Diff Today R73.01 - Impaired fasting glucose Lipid Panel Today E78.00 - Pure hypercholesterolemia, unspecified, R73.01 - Impaired fasting glucose Hemoglobin A1c Today R73.01 - Impaired fasting glucose Vitamin D 25-OH Total Today R73.01 - Impaired fasting glucose Magnesium Today R73.01 - Impaired fasting glucose MM tomosynthesis screening BI Today Z12.31 - Encounter for screening mammogram for malignant neoplasm of breast XR DEXA axial skeleton Today M81.0 - Age-related osteoporosis without current pathological fracture Td Immunization Today Z23 - Encounter for immunization
[2024-11-25 08:57] VITALS: BP 118/72; PULSE 66; TEMP 36.2; O2SAT 97; BMI 21.3
--- OUTSIDE RECORDS SUMMARY | 2024-11-25 09:29 | XMS_ITS | Clinical Summary ---
Author Organization [employer] Address [address] [place] [address] [address] [place] [address] Care Team Providers Care Forming And Assembling Supervisor Name Role Phone Sarina Braswell MANAGER INVESTMENT Primary Care Provider [phone] Haley Zacarias Unavailable Unavailable Allergies Active Allergy [...] Exam 11/30/2022 05/30/2022 COVID-19 Vaccine (3 - 2024-2 6 season) 2024 07/12/2020, 06/21/2020 Influenza Vaccine (#1) 2024 Tobacco [...] Provider LAB CYTOLOGY ORDERABLES F inal Result [facility] [address] [place] [address] * COLONOSCOPY: DAVID. ANIYA VALVERDE [...] Health [place] [address] DENTAL - [facility] PPO DENTAL - HSN FULL (MEDICAID) * Guarantor: Bailee Campuzano Account Type Relation to Patient Date of Phone Billing Address Personal/Family Self [address] [place] Care Teams Forming And Assembling Supervisor Relationship Specialty Start Date End Date Sarina Braswell FNP [address] [place] [address] PCP - General Family Medicine 01/27/22 Haley Zacarias Health Navigator 10/09/23
== END 2024-11-25 09:51 | disposition home or self-care (01) ==
LOC: HO.HMCH 08:55
PROVIDERS: PCP Internal Medicine; Visit Provider Internal Medicine
DX: R73.01 Impaired fasting glucose (principal); I47.10 Supraventricular tachycardia, unspecified; Z12.31 Encounter for screening mammogram for malignant neoplasm of breast; M85.80 Other specified disorders of bone density and structure, unspecified site; Z23 Encounter for immunization

== ENCOUNTER → 2024-11-25 08:54 | Outpatient (BNVA) | payer MEDICARE, SELFPAY | PROVIDERS: PCP Internal Medicine; Visit Provider Internal Medicine | DX: I47.10 Supraventricular tachycardia, unspecified (principal); R73.01 Impaired fasting glucose; Z23 Encounter for immunization; J40 Bronchitis, not specified as acute or chronic; M81.0 Age-related osteoporosis without current pathological fracture | CPT/HCPCS: 90471; 90714; 96127; 99212 ==